=== PATIENT | female | born 2000 | race Caucasian/White ===

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

== ENCOUNTER 2019-07-09 11:58 | Emergency (ER) | payer BC, MEDICAID ==
--- NOTE | 2019-07-09 12:33 | ED ---
Female Urogenital HPI - General Chief complaint: Urogenital Stated complaint: Ovary Pain Time Seen by Provider: 07/09/19 12:11 Source: patient Mode of arrival: ambulatory Limitations: no limitations - History of Present Illness Initial comments: 19-year-old female presented for left lower quadrant pelvic pain. Patient states she has had left lower quadrant pain that began today. She states she also began menstruation. Patient states she is unsure if she is but she has been trying. Patient states the pain could be due to her period but she is unsure she states it appeared more painful. Patient denies concern for STI, denies malodorous or large volume of vaginal discharge. Denies fever. Denies dysuria urgency frequency denies back pain. Patient denies upper abdominal pain remaining review of systems negative Last Menstrual Period: 07/07/19 - Related Data Home Medications Medication Instructions Recorded Confirmed Albuterol Inhaler [Ventolin Hfa 1 - 2 puff INHALATION RT-Q6H PRN 08/05/18 08/05/18 Inhaler] Omeprazole [PriLOSEC] 10 mg PO DAILY 08/05/18 08/05/18 Allergies Allergy/AdvReac Type Severity Reaction Status Date / Time hydrocodone Allergy Unknown Verified 07/09/19 12:06 hydromorphone [From Dilaudid] Allergy Rash/Hives Verified 07/09/19 12:06 NSAIDS (Non-Steroidal Allergy Anaphylaxis Verified 07/09/19 12:06 Anti-Inflamma Penicillins Allergy Rash/Hives Verified 07/09/19 12:06 promethazine Allergy Rash/Hives Verified 07/09/19 12:06 Review of Systems ROS Statement: Those systems with pertinent positive or pertinent negative responses have been documented in the HPI. ROS Other: All systems not noted in ROS Statement are negative. Past Medical History Past Medical History: Asthma, Pneumonia Additional Past Medical History / Comment(s): trach kicked in throat by horse in july 2016, bilat pneumo History of Any Multi-Drug Resistant Organisms: None Reported Past Surgical History: No Surgical Hx Reported Additional Past Surgical History / Comment(s): Emergent tracheostomy 07/2016, 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 vocal cord surgeries, trach, chest tube Past Anesthesia/Blood Transfusion Reactions: No Reported Reaction Past Psychological History: Anxiety, Depression Smoking Status: Current every day smoker Past Alcohol Use History: None Reported Past Drug Use History: None Reported - Past Family History Brother(s) Family Medical History: Cancer General Exam - General Exam Comments Initial Comments: General: The patient is awake and alert, in no distress, and does not appear acutely ill. Eye: Pupils are equal, round and reactive to light, extra-ocular movements are intact. No nystagmus. There is normal conjunctiva bilaterally. No signs of icterus. Ears, nose, mouth and throat: There are moist mucous membranes and no oral lesions. Neck: The neck is supple, there is no tenderness or JVD. Cardiovascular: There is a regular rate and rhythm. No murmur, rub or gallop is appreciated. Respiratory: Lungs are clear to auscultation, respirations are non-labored, breath sounds are equal. No wheezes, stridor, rales, or rhonchi Gastrointestinal: Soft, non-distended, mildly tender abdomento the pelvic region diffusely without masses or organomegaly noted. There is no rebound or guarding present. No CVA tenderness. Bowel sounds are unremarkable. Pelvic: Blood in vault, no ordor no discharge. no motion tenderness. No adnexal tenderness. Musculoskeletal: Normal ROM, no tenderness. Strength 5/5. Sensation intact. Pulses equal bilaterally 2+. Neurological: A&O x 3. CN II-XII intact, There are no obvious motor or sensory deficits. Coordination appears grossly intact. Speech is normal. Skin: Skin is warm and dry and no rashes or lesions are noted. Psychiatric: Cooperative, appropriate mood & affect, normal judgment. Limitations: no limitations Course Vital Signs 07/09/19 07/09/19 07/09/19 12:02 13:21 13:23 Temperature 98.2 F 98.5 F Pulse Rate 75 54 L Respiratory 16 13 Rate Blood Pressure 106/68 104/58 103/65 O2 Sat by Pulse 98 98 Oximetry 07/09/19 14:57 Temperature 98.6 F Pulse Rate 67 Respiratory 13 Rate Blood Pressure 106/76 O2 Sat by Pulse 96 Oximetry Medical Decision Making - Medical Decision Making 19-year-old female presenting for pelvic pain started menstruation today. Patient unsure if she is . Complaining of pain. Ultrasound revealed no ovarian torsion. Findings consistent with follicular changes most likely menstruation. No large ovarian cyst. Patient hCG negative. Patient appears well pelvic unremarkable. Aside from blood in vaginal vault. No heavier out of proportion bleeding. This 70. Patient stable for discharge. I did discuss the case by attending provider was agreeable to care for discharge at this time. - Lab Data Result diagrams: 07/09/19 12:22 07/09/19 12:22 Lab Results 07/09/19 07/09/19 07/09/19 Range/Units 12:22 12:22 12:22 WBC 4.3 (4.0-11.0) k/uL RBC 4.49 (3.80-5.40) m/uL Hgb 13.9 (11.4-16.0) gm/dL Hct 40.8 (34.0-46.0) % MCV 91.0 (80.0-100.0) fL MCH 30.9 (25.0-35.0) pg MCHC 34.0 (31.0-37.0) g/dL RDW 14.5 (11.5-15.5) % Plt Count 243 (150-450) k/uL Neutrophils % 49 % Lymphocytes % 36 % Monocytes % 5 % Eosinophils % 6 % Basophils % 1 % Neutrophils # 2.1 (1.3-7.7) k/uL Lymphocytes # 1.5 (1.0-4.8) k/uL Monocytes # 0.2 (0-1.0) k/uL Eosinophils # 0.3 (0-0.7) k/uL Basophils # 0.1 (0-0.2) k/uL Sodium 142 (137-145) mmol/L Potassium 3.7 (3.5-5.1) mmol/L Chloride 108 H (98-107) mmol/L Carbon Dioxide 26 (22-30) mmol/L Anion Gap 8 mmol/L BUN 14 (7-17) mg/dL Creatinine 0.76 (0.52-1.04) mg/dL Est GFR (CKD-EPI)AfAm >90 (>60 ml/min/1.73 sqM) Est GFR (CKD-EPI)NonAf >90 (>60 ml/min/1.73 sqM) Glucose 86 (74-99) mg/dL Calcium 9.5 (8.4-10.2) mg/dL Total Bilirubin 0.9 (0.2-1.3) mg/dL AST 20 (14-36) U/L ALT 16 (9-52) U/L Alkaline Phosphatase 50 (38-126) U/L Total Protein 7.4 (6.3-8.2) g/dL Albumin 4.5 (3.5-5.0) g/dL Urine HCG, Qual Not Detected (Not Detectd) Disposition Clinical Impression: Vaginal bleeding Disposition: HOME SELF-CARE Condition: Good Instructions (If sedation given, give patient instructions): Dysmenorrhea (ED) Additional Instructions: Please use medication as discussed. Please follow-up with family doctor in the next 2 days and establish care with an OBGYN. Please return to emergency room if the symptoms increase or worsen or for any other concerns. Is patient prescribed a controlled substance at d/c from ED?: No Referrals: Kevin Ceballos MD [Primary Care Provider] - 1-2 days Time of Disposition: 14:45
[2019-07-09 12:49] LABS: ALT 16 U/L (9-52); AST 20 U/L (14-36); African American GFR (CKD) >90 (>60 ml/min/1.73 sqM); Albumin 4.5 g/dL (3.5-5.0); Alkaline Phosphatase 50 U/L (38-126); Anion Gap 8 mmol/L; Blood Urea Nitrogen 14 mg/dL (7-17); Calcium 9.5 mg/dL (8.4-10.2); Carbon Dioxide 26 mmol/L (22-30); Chloride 108 mmol/L (98-107); Glucose 86 mg/dL (74-99); Non-African American GFR(CKD) >90 (>60 ml/min/1.73 sqM); Potassium 3.7 mmol/L (3.5-5.1); Sodium 142 mmol/L (137-145); Total Bilirubin 0.9 mg/dL (0.2-1.3); Total Protein 7.4 g/dL (6.3-8.2)
[2019-07-09 12:51] LABS: Basophils # (A) 0.1 k/uL (0-0.2); Basophils % (A) 1 %; Eosinophils # (A) 0.3 k/uL (0-0.7); Eosinophils % (A) 6 %; HCT 40.8 % (34.0-46.0); HGB 13.9 gm/dL (11.4-16.0); Lymphocytes # (A) 1.5 k/uL (1.0-4.8); Lymphocytes % (A) 36 %; MCH 30.9 pg (25.0-35.0); Mean Platelet Volume 7.5; Monocytes # (A) 0.2 k/uL (0-1.0); Monocytes % (A) 5 %; Neutrophils # (A) 2.1 k/uL (1.3-7.7); Neutrophils % (A) 49 %; Platelet Count 243 k/uL (150-450); RBC 4.49 m/uL (3.80-5.40); RDW 14.5 % (11.5-15.5); WBC 4.3 k/uL (4.0-11.0)
[2019-07-09 13:22] VITALS: RESP 13
--- NOTE | 2019-07-09 14:43 | US ---
EXAMINATION TYPE: US transvaginal DATE OF EXAM: 07/09/2019 COMPARISON: US CLINICAL HISTORY: left sided pain. LLQ pain x 2 hours; Day 5 LMP TECHNIQUE: Transvaginal (TV). Transvaginal sonographic images were medically necessary as patient vo ided 5 minutes prior to US.: Date of LMP: 07/05/2019 EXAM MEASUREMENTS: Uterus: 7.0 x 4.5 x 2.6 cm Endometrial Stripe: 0.3 cm Right Ovary: 3.0 x 2.0 x 2.3 cm Left Ovary: 3.2 x 1.9 x 2.1 cm 1. Uterus: Anteverted 2. Endometrium: thickness is wnl for Day 5 LMP, fluid area in upper endometrium consistent with bein g on menstrual cycle 3. Right Ovary: multiple small follicles 4. Left Ovary: multiple small follicles with largest simple follicular cyst = 0.9 x 0. x 0.6cm. Spectral, color and waveform Doppler imaging shows good arterial and venous flow within the ovaries ; there is no evidence for ovarian torsion. 5. Bilateral Adnexa: wnl 6. Posterior cul-de-sac: wnl IMPRESSION: 1. Multiple normal appearing follicles bilateral ovaries.
[2019-07-09 15:06] VITALS: BP 106/76; PULSE 67; TEMP 98.6
== END 2019-07-09 14:57 | disposition home or self-care (01) ==
LOC: EC 11:58
DX: N93.9 Abnormal uterine and vaginal bleeding, unspecified (principal); R10.2 Pelvic and perineal pain; R10.32 Left lower quadrant pain; J45.909 Unspecified asthma, uncomplicated; F17.200 Nicotine dependence, unspecified, uncomplicated; Z79.51 Long term (current) use of inhaled steroids; Z88.0 Allergy status to penicillin; Z88.5 Allergy status to narcotic agent; Z88.6 Allergy status to analgesic agent
CPT/HCPCS: 36415; 76830; 80053; 81025; 85025; 93975; 99284

== ENCOUNTER 2019-09-16 18:02 | Emergency (ER) | payer BC, MEDICAID ==
[2019-09-16 18:15] VITALS: RESP 16
[2019-09-16] MEDS ORDERED: SODIUM CHLORIDE 0.9% 1,000 ML IV ONE (18:25)
[2019-09-16] MEDS ORDERED: ACETAMINOPHEN TAB 325 MG TAB PO STA (18:44)
--- NOTE | 2019-09-16 18:45 | ED ---
Weakness HPI - General Chief complaint: Weakness Stated complaint: weakness Time Seen by Provider: 09/16/19 18:20 Source: patient Mode of arrival: ambulatory Limitations: no limitations - History of Present Illness Initial comments: 19-year-old female presents emergency department for evaluation of weakness, headache-patient is currently 7 weeks . Patient states she struck some chronic migraines and usually gets a monthly injection. Patient states that 2 days after she found that she was she is supposed to have her monthly injection for prevention of migraines. Patient states that since she has had a chronic migraine. Patient denies any sudden onset of this pain the worse headache of her left. Patient states she did have an aura where she had blurred vision yesterday and the onset of headache she states this is typical of her migraines. Patient denies any current blurred vision vision loss nausea or vomiting. Patient denies any weakness of the upper or lower extremities. Patient states she felt generalized weakness today she states she has history of hypoglycemia on a 2 brownies because she felt like her sugar was low and family was concerned and brought her to emergency department for evaluation. Patient states she did not feel she needed to come. Remaining review of systems negative patient denies any abdominal cramping or vaginal bleeding. Patient appears well upon arrival no signs of acute distress. - Related Data Home Medications Medication Instructions Recorded Confirmed Albuterol Inhaler [Ventolin Hfa 1 - 2 puff INHALATION RT-Q6H PRN 08/05/18 08/05/18 Inhaler] Omeprazole [PriLOSEC] 10 mg PO DAILY 08/05/18 08/05/18 Allergies Allergy/AdvReac Type Severity Reaction Status Date / Time hydrocodone Allergy Unknown Verified 09/16/19 18:15 hydromorphone [From Dilaudid] Allergy Rash/Hives Verified 09/16/19 18:15 NSAIDS (Non-Steroidal Allergy Anaphylaxis Verified 09/16/19 18:15 Anti-Inflamma Penicillins Allergy Rash/Hives Verified 09/16/19 18:15 promethazine Allergy Rash/Hives Verified 09/16/19 18:15 Review of Systems ROS Statement: Those systems with pertinent positive or pertinent negative responses have been documented in the HPI. ROS Other: All systems not noted in ROS Statement are negative. Past Medical History Past Medical History: Asthma, Pneumonia Additional Past Medical History / Comment(s): trach kicked in throat by horse in july 2016, bilat pneumo History of Any Multi-Drug Resistant Organisms: None Reported Past Surgical History: No Surgical Hx Reported Additional Past Surgical History / Comment(s): Emergent tracheostomy 07/2016, 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 vocal cord surgeries, trach, chest tube Past Anesthesia/Blood Transfusion Reactions: No Reported Reaction Past Psychological History: Anxiety, Depression Smoking Status: Current every day smoker Past Alcohol Use History: None Reported Past Drug Use History: None Reported - Past Family History Brother(s) Family Medical History: Cancer General Exam - General Exam Comments Initial Comments: General: The patient is awake and alert, in no distress, and does not appear acutely ill. Eye: +3 mm pupils are equal, round and reactive to light, extra-ocular movements are intact. No nystagmus. There is normal conjunctiva bilaterally. No signs of icterus. Ears, nose, mouth and throat: There are moist mucous membranes and no oral lesions. Neck: The neck is supple, there is no tenderness or JVD. Cardiovascular: There is a regular rate and rhythm. No murmur, rub or gallop is appreciated. Respiratory: Lungs are clear to auscultation, respirations are non-labored, breath sounds are equal. No wheezes, stridor, rales, or rhonchi. Gastrointestinal: Soft, non-distended, non-tender abdomen without masses or organomegaly noted. There is no rebound or guarding present. Musculoskeletal: Normal ROM, no tenderness. Strength 5/5 of the upper and lower extremities equal to person bilaterally. Sensation intact of the upper and lower extremities equal and comparison bilaterally. Radial pulses equal bilaterally 2+. Neurological: A&O x 3. CN II-XII intact, There are no obvious motor or sensory deficits. Coordination appears grossly intact. Speech is normal. No pronator drift Skin: Skin is warm and dry and no rashes or lesions are noted. Psychiatric: Cooperative, appropriate mood & affect, normal judgment. Limitations: no limitations Course Vital Signs 09/16/19 09/16/19 18:13 19:28 Temperature 98.2 F 98.0 F Pulse Rate 61 65 Respiratory 16 16 Rate Blood Pressure 112/63 118/78 O2 Sat by Pulse 97 98 Oximetry Medical Decision Making - Medical Decision Making Appearing 19-year-old female presenting to emergency department for evaluation of generalized weakness. Migraine. History of chronic migraines denies any specific changes. No focal neurologic deficits patient appears well. Patient given Tylenol. Patient given IV hydration she continues to appear well. Glucose within normal limits. Laboratory studies stable. Patient is with a towel pain vaginal bleeding and has had outpatient ultrasound to confirm IUP. At this time I do feel patient is stable for discharge with outpatient primary care follow-up case discussed mentally provider Dr. Schaefer who was agreeable with care plan and discharge. - Lab Data Result diagrams: 09/16/19 18:42 09/16/19 18:42 Lab Results 09/16/19 09/16/19 09/16/19 Range/Units 18:42 18:42 18:47 WBC 9.0 (4.0-11.0) k/uL RBC 4.51 (3.80-5.40) m/uL Hgb 13.7 (11.4-16.0) gm/dL Hct 40.4 (34.0-46.0) % MCV 89.5 (80.0-100.0) fL MCH 30.3 (25.0-35.0) pg MCHC 33.8 (31.0-37.0) g/dL RDW 11.8 (11.5-15.5) % Plt Count 250 (150-450) k/uL Neutrophils % 74 % Lymphocytes % 19 % Monocytes % 4 % Eosinophils % 1 % Basophils % 1 % Neutrophils # 6.7 (1.3-7.7) k/uL Lymphocytes # 1.7 (1.0-4.8) k/uL Monocytes # 0.3 (0-1.0) k/uL Eosinophils # 0.1 (0-0.7) k/uL Basophils # 0.1 (0-0.2) k/uL Sodium 138 (137-145) mmol/L Potassium 3.8 (3.5-5.1) mmol/L Chloride 105 (98-107) mmol/L Carbon Dioxide 22 (22-30) mmol/L Anion Gap 11 mmol/L BUN 11 (7-17) mg/dL Creatinine 0.53 (0.52-1.04) mg/dL Est GFR (CKD-EPI)AfAm >90 (>60 ml/min/1.73 sqM) Est GFR (CKD-EPI)NonAf >90 (>60 ml/min/1.73 sqM) Glucose 99 (74-99) mg/dL POC Glucose (mg/dL) 101 H (75-99) mg/dL POC Glu Friction Welding Machine Operator ID Andrzej Knowles Calcium 9.7 (8.4-10.2) mg/dL Total Bilirubin 0.4 (0.2-1.3) mg/dL AST 26 (14-36) U/L ALT 15 (9-52) U/L Alkaline Phosphatase 41 (38-126) U/L Total Protein 7.7 (6.3-8.2) g/dL Albumin 4.7 (3.5-5.0) g/dL Urine Color Urine Appearance (Clear) Urine pH (5.0-8.0) Ur Specific [place] (1.001-1.035) Urine Protein (Negative) Urine Glucose (UA) (Negative) Urine Ketones (Negative) Urine Blood (Negative) Urine Nitrite (Negative) Urine Bilirubin (Negative) Urine Urobilinogen (<2.0) mg/dL Ur Leukocyte Esterase (Negative) Urine WBC (0-5) /hpf Ur Squamous Epith Cells (0-4) /hpf Urine Mucus (None) /hpf 09/16/19 Range/Units 18:49 WBC (4.0-11.0) k/uL RBC (3.80-5.40) m/uL Hgb (11.4-16.0) gm/dL Hct (34.0-46.0) % MCV (80.0-100.0) fL MCH (25.0-35.0) pg MCHC (31.0-37.0) g/dL RDW (11.5-15.5) % Plt Count (150-450) k/uL Neutrophils % % Lymphocytes % % Monocytes % % Eosinophils % % Basophils % % Neutrophils # (1.3-7.7) k/uL Lymphocytes # (1.0-4.8) k/uL Monocytes # (0-1.0) k/uL Eosinophils # (0-0.7) k/uL Basophils # (0-0.2) k/uL Sodium (137-145) mmol/L Potassium (3.5-5.1) mmol/L Chloride (98-107) mmol/L Carbon Dioxide (22-30) mmol/L Anion Gap mmol/L BUN (7-17) mg/dL Creatinine (0.52-1.04) mg/dL Est GFR (CKD-EPI)AfAm (>60 ml/min/1.73 sqM) Est GFR (CKD-EPI)NonAf (>60 ml/min/1.73 sqM) Glucose (74-99) mg/dL POC Glucose (mg/dL) (75-99) mg/dL POC Glu Friction Welding Machine Operator ID Calcium (8.4-10.2) mg/dL Total Bilirubin (0.2-1.3) mg/dL AST (14-36) U/L ALT (9-52) U/L Alkaline Phosphatase (38-126) U/L Total Protein (6.3-8.2) g/dL Albumin (3.5-5.0) g/dL Urine Color Yellow Urine Appearance Clear (Clear) Urine pH 5.5 (5.0-8.0) Ur Specific [place] 1.025 (1.001-1.035) Urine Protein Trace H (Negative) Urine Glucose (UA) Negative (Negative) Urine Ketones Negative (Negative) Urine Blood Negative (Negative) Urine Nitrite Negative (Negative) Urine Bilirubin Negative (Negative) Urine Urobilinogen <2.0 (<2.0) mg/dL Ur Leukocyte Esterase Small H (Negative) Urine WBC 9 H (0-5) /hpf Ur Squamous Epith Cells 6 H (0-4) /hpf Urine Mucus Many H (None) /hpf Disposition Clinical Impression: Weakness, Hx of migraine headaches, Hx of hypoglycemia Disposition: HOME SELF-CARE Condition: Good Additional Instructions: Please use medication as discussed. Please follow-up with family doctor in the next 2 days and [facility] as scheduled. Please return to emergency room if the symptoms increase or worsen or for any other concerns. Is patient prescribed a controlled substance at d/c from ED?: No Referrals: Kevin Ceballos MD [Primary Care Provider] - 1-2 days Time of Disposition: 20:30
[2019-09-16 18:48] LABS: Glucose,Whole Blood 101 mg/dL (75-99)
[2019-09-16 19:18] LABS: Basophils # (A) 0.1 k/uL (0-0.2); Basophils % (A) 1 %; Eosinophils # (A) 0.1 k/uL (0-0.7); Eosinophils % (A) 1 %; HCT 40.4 % (34.0-46.0); HGB 13.7 gm/dL (11.4-16.0); Lymphocytes # (A) 1.7 k/uL (1.0-4.8); Lymphocytes % (A) 19 %; MCH 30.3 pg (25.0-35.0); MCHC 33.8 g/dL (31.0-37.0); MCV 89.5 fL (80.0-100.0); Mean Platelet Volume 6.7; Monocytes # (A) 0.3 k/uL (0-1.0); Monocytes % (A) 4 %; Neutrophils # (A) 6.7 k/uL (1.3-7.7); Neutrophils % (A) 74 %; Platelet Count 250 k/uL (150-450); RBC 4.51 m/uL (3.80-5.40); RDW 11.8 % (11.5-15.5)
[2019-09-16 19:30] VITALS: BP 118/78; PULSE 65; TEMP 98
[2019-09-16 19:41] LABS: ALT 15 U/L (9-52); AST 26 U/L (14-36); African American GFR (CKD) >90 (>60 ml/min/1.73 sqM); Albumin 4.7 g/dL (3.5-5.0); Alkaline Phosphatase 41 U/L (38-126); Anion Gap 11 mmol/L; Blood Urea Nitrogen 11 mg/dL (7-17); Calcium 9.7 mg/dL (8.4-10.2); Carbon Dioxide 22 mmol/L (22-30); Chloride 105 mmol/L (98-107); Glucose 99 mg/dL (74-99); Non-African American GFR(CKD) >90 (>60 ml/min/1.73 sqM); Potassium 3.8 mmol/L (3.5-5.1); Sodium 138 mmol/L (137-145); Total Bilirubin 0.4 mg/dL (0.2-1.3); Total Protein 7.7 g/dL (6.3-8.2)
[2019-09-16 19:51] LABS: Appearance,Urine Clear (Clear); Bilirubin,Urine Negative (Negative); Blood,Urine Negative (Negative); Color,Urine Yellow; Glucose,Urine (UA) Negative (Negative); Ketones,Urine Negative (Negative); Leukocyte Esterase,Urine Small (Negative); Mucus,Urine Many /hpf; Nitrite,Urine Negative (Negative); PH, Urine 5.5 (5.0-8.0); Protein,Urine Trace (Negative); Specific Gravity,Urine 1.025 (1.001-1.035); Squamous Epithelial Cell,Urine 6 /hpf (0-4); Urobilinogen,Urine <2.0 mg/dL (<2.0); WBC,Urine 9 /hpf (0-5)
== END 2019-09-16 21:05 | disposition home or self-care (01) ==
LOC: EC 18:02
DX: O99.89 Other specified diseases and conditions complicating pregnancy, childbirth and the puerperium (principal); O99.351 Diseases of the nervous system complicating pregnancy, first trimester; R53.1 Weakness; N93.9 Abnormal uterine and vaginal bleeding, unspecified; O99.331 Smoking (tobacco) complicating pregnancy, first trimester; J45.909 Unspecified asthma, uncomplicated; F17.200 Nicotine dependence, unspecified, uncomplicated; Z88.5 Allergy status to narcotic agent; Z88.6 Allergy status to analgesic agent; Z88.0 Allergy status to penicillin; Z88.8 Allergy status to other drugs, medicaments and biological substances; Z79.51 Long term (current) use of inhaled steroids; Z3A.01 Less than 8 weeks gestation of pregnancy
CPT/HCPCS: 36415; 80053; 81001; 85025; 96360; 96361; 99285

== ENCOUNTER 2019-10-12 19:07 | Emergency (ER) | payer BC, MEDICAID, OTHER ==
[2019-10-12 19:19] VITALS: BP 117/70; PULSE 96; RESP 20; TEMP 99.1
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
--- NOTE | 2019-10-12 20:24 | XR ---
EXAMINATION TYPE: XR chest 2V DATE OF EXAM: 10/12/2019 COMPARISON: 08/13/2018 HISTORY: 2 views TECHNIQUE: Frontal and lateral views of the chest are obtained. FINDINGS: Heart and mediastinum are normal. Lungs are clear. Costophrenic angles are clear. Bony tho rax is intact. IMPRESSION: No active cardiopulmonary disease. Normal heart. No change.
--- NOTE | 2019-10-12 20:26 | XR ---
EXAMINATION TYPE: XR foot complete LT DATE OF EXAM: 10/12/2019 COMPARISON: NONE HISTORY: Left foot pain TECHNIQUE: 3 views FINDINGS: I see no fracture nor dislocation. Joint spaces are normal. There are no pathologic calcifi cations. Metatarsals are intact. IMPRESSION: Negative left foot exam.
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
== END 2019-10-12 22:15 | disposition home or self-care (01) ==
LOC: EC 19:07
DX: O99.89 Other specified diseases and conditions complicating pregnancy, childbirth and the puerperium (principal); R10.30 Lower abdominal pain, unspecified; O99.511 Diseases of the respiratory system complicating pregnancy, first trimester; J45.909 Unspecified asthma, uncomplicated; O99.331 Smoking (tobacco) complicating pregnancy, first trimester; F17.200 Nicotine dependence, unspecified, uncomplicated; Z98.890 Other specified postprocedural states; Z79.899 Other long term (current) drug therapy; Z88.5 Allergy status to narcotic agent; Z88.6 Allergy status to analgesic agent; Z88.0 Allergy status to penicillin; Z88.8 Allergy status to other drugs, medicaments and biological substances; Z3A.12 12 weeks gestation of pregnancy; V89.2XXA Person injured in unspecified motor-vehicle accident, traffic, initial encounter; Y92.89 Other specified places as the place of occurrence of the external cause
CPT/HCPCS: 71046; 76801; 76813; 99284

== ENCOUNTER 2019-12-02 18:17 | Emergency (ER) | payer BC, MEDICAID ==
[2019-12-02 19:32] VITALS: BP 111/53; PULSE 100; RESP 18; TEMP 98.8
--- NOTE | 2019-12-02 19:42 | ED ---
URI HPI - General Chief Complaint: Upper Respiratory Infection Stated Complaint: Cough, congestion Time Seen by Provider: 12/02/19 19:39 Source: patient Mode of arrival: ambulatory Limitations: no limitations - History of Present Illness Initial Comments: 19 week female presenting for cough, congestion x 2 days. Denies vomiting, diarrhea, abdominal pain, vaginal bleeding, fevers, difficulty breathing or swallowing. Hx of pneumonia when she had a tracheostomy. Patient denies recent pna or antibiotics. Denies urinary symptoms, neck stiffness, headache. Remaining ROS (-). - Related Data Home Medications Medication Instructions Recorded Confirmed 114/Iron A-G/Folate 1 1 each PO 12/02/19 [Prenate Elite Tablet] Allergies Allergy/AdvReac Type Severity Reaction Status Date / Time hydrocodone Allergy Unknown Verified 12/02/19 19:32 hydromorphone [From Dilaudid] Allergy Rash/Hives Verified 12/02/19 19:32 NSAIDS (Non-Steroidal Allergy Anaphylaxis Verified 12/02/19 19:32 Anti-Inflamma Penicillins Allergy Rash/Hives Verified 12/02/19 19:32 promethazine Allergy Rash/Hives Verified 12/02/19 19:32 Review of Systems ROS Statement: Those systems with pertinent positive or pertinent negative responses have been documented in the HPI. ROS Other: All systems not noted in ROS Statement are negative. Past Medical History Past Medical History: Asthma, Pneumonia Additional Past Medical History / Comment(s): trach kicked in throat by horse in july 2016, bilat pneumo History of Any Multi-Drug Resistant Organisms: None Reported Past Surgical History: No Surgical Hx Reported Additional Past Surgical History / Comment(s): Emergent tracheostomy 07/2016, 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 vocal cord surgeries, trach, chest tube Past Anesthesia/Blood Transfusion Reactions: No Reported Reaction Past Psychological History: Anxiety, Depression Smoking Status: Former smoker Past Alcohol Use History: None Reported Past Drug Use History: None Reported - Past Family History Brother(s) Family Medical History: Cancer General Exam - General Exam Comments Initial Comments: General: The patient is awake and alert, in no distress, and does not appear acutely ill. Eye: +3 mm pupils are equal, round and reactive to light, extra-ocular movements are intact. No nystagmus. There is normal conjunctiva bilaterally. No signs of icterus. No photophobia Ears, nose, mouth and throat: There are moist mucous membranes and no oral lesions. Oropharynx was not erythematous there is no tonsillar enlargement exudates or lesions. Uvula midline. Tympanic membranes are not erythematous or is no effusions bulging or retraction. No tenderness to palpation of the mastoid. No anterior cervical lymphadenopathy. Rhinorrhea, clear and bilateral nares. No tripoding, no drooling. Neck: The neck is supple, there is no tenderness or JVD. No nuchal rigidity Cardiovascular: There is a regular rate and rhythm. No murmur, rub or gallop is appreciated. Respiratory: Lungs are clear to auscultation, respirations are non-labored, breath sounds are equal. No wheezes, stridor, rales, or rhonchi. No retractions or abdominal breathing. Gastrointestinal: Soft, consitent wtih non-tender abdomen without masses or organomegaly noted. There is no rebound or guarding present. Bowel sounds are unremarkable. Musculoskeletal: Normal ROM, no tenderness. Strength 5/5. Sensation intact. Radial pulses equal bilaterally 2+. Neurological: A&O x 3. CN II-XII intact grossly, There are no obvious motor or sensory deficits. Coordination appears grossly intact. Speech appears normal, no muffling. Skin: Skin is warm and dry and no rashes or lesions are noted. No extremity edema Psychiatric: Cooperative Limitations: no limitations Course Vital Signs 12/02/19 19:28 Temperature 98.8 F Pulse Rate 100 Respiratory 18 Rate Blood Pressure 111/53 O2 Sat by Pulse 100 Oximetry Medical Decision Making - Medical Decision Making CXR clear ( patient requested xr despite risk, shielded), lungs clear. influenza (-) nontoxic in appearance, afebrile. FHT WNL, obtained from mother baby. Discussed case with Dr. Bravo who is agreeable to discharge with symptomatic treatment, recommending discussing all OTC meds with OBGYN before taking them. Instructed patient to take tylenol for throat pain. - Lab Data Lab Results 12/02/19 Range/Units 19:51 Influenza Type A RNA Not Detected (Not Detectd) Influenza Type B (PCR) Not Detected (Not Detectd) Disposition Clinical Impression: Upper respiratory infection Disposition: HOME SELF-CARE Condition: Good Instructions (If sedation given, give patient instructions): Upper Respiratory Infection (ED) Additional Instructions: Please use medication as discussed. Please follow-up with family doctor in the next 2 days. Please return to emergency room if the symptoms increase or worsen or for any other concerns. Is patient prescribed a controlled substance at d/c from ED?: No Referrals: Kevin Ceballos MD [Primary Care Provider] - 1-2 days Time of Disposition: 20:43
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
== END 2019-12-02 20:56 | disposition home or self-care (01) ==
LOC: EC 18:17
DX: J06.9 Acute upper respiratory infection, unspecified (principal); Z87.891 Personal history of nicotine dependence; Z87.09 Personal history of other diseases of the respiratory system; Z87.01 Personal history of pneumonia (recurrent); Z93.0 Tracheostomy status; Z88.5 Allergy status to narcotic agent; Z88.6 Allergy status to analgesic agent; Z88.0 Allergy status to penicillin; Z88.8 Allergy status to other drugs, medicaments and biological substances
CPT/HCPCS: 71046; 87502; 99283

== ENCOUNTER 2020-01-19 22:37 | Outpatient (CLI) | payer BC, MEDICAID ==
[2020-01-19 23:30] VITALS: BP 112/64; PULSE 90; RESP 16; TEMP 98.4
== END 2020-01-19 23:25 | disposition home or self-care (01) ==
LOC: FBPOP 22:37
PROVIDERS: ATTEND Obstetrics & Gynecology
DX: O36.8120 Decreased fetal movements, second trimester, not applicable or unspecified (principal); Z3A.26 26 weeks gestation of pregnancy
CPT/HCPCS: 99213

== ENCOUNTER 2020-04-06 16:45 | Outpatient (CLI) | payer MEDICAID ==
[2020-04-06 17:21] VITALS: BP 120/71; PULSE 102; RESP 18; TEMP 97.5
--- NOTE | 2020-04-07 07:52 | P.MSEPDOC ---
Presenting Problems - Arrival Data Date of Arrival on Unit: 04/06/20 Time of Arrival on Unit: 16:48 Mode of Transport: Ambulatory - Complaint OB-Reason for Admission/Chief Complaint: Rule Out SROM, Decreased Movement Comment: Amnisure neg. audible movement and reactive NST Medical History - Information : 1 Para: 0 Term: 0 : 0 Abortions: Spontaneous or Elective: 0 Number of Living Children: 0 - Gestational Age Gestational Age by IRENE (wks/days): 37 Weeks and 1 Days Review of Systems - Review of Systems Constitutional: No problems Breast: No problems ENT: No problems Cardiovascular: No problems Respiratory: No problems Gastrointestinal: No problems Genitourinary: No problems Musculoskeletal: No problems Neurological: No problems Skin: No problems Vital Signs - Temperature Temperature: 97.5 F Temperature Source: Temporal Artery Scan - Pulse Right Sitting Brachial Pulse Rate: 102 Pulse Assessment Method: Automatic Cuff - Respirations Respiratory Rate: 18 Oxygen Delivery Method: Room Air O2 Sat by Pulse Oximetry: 97 - Blood Pressure Right Arm Sitting Blood Pressure: 120/71 Blood Pressure Mean: 87 Blood Pressure Source: Automatic Cuff Medical Screen Scoring (Pre) - Cervical Exam Dilation: 1-3 cm = 1 Effacement: More than 50% = 2 Membranes: Intact - Uterine Contractions Frequency: > or = 36 weeks =2 Duration: > 40 seconds = 2 Intensity: N/A - Maternal Vital Signs Maternal Temperature: N/A Maternal Blood Pressure: N/A Signs of Preeclampsia: N/A Maternal Respirations: N/A - Maternal Trauma Maternal Trauma: N/A - Assessment - Baby A Baseline FHR: 130 Heart Rate - NICHD Category: Category I (Normal) = 0 NST: Reactive Position: N/A Station: N/A - Total Score - Baby A Total Score - Baby A: 7 - Total Score - Baby B Total Score - Baby B: 7 - Total Score - Baby C Total Score - Baby C: 7 - Level of Risk - Baby A Level of Risk - Baby A: Medium (6-9) - Level of Risk - Baby B Level of Risk - Baby B: Medium (6-9) - Level of Risk - Baby C Level of Risk - Baby C: Medium (6-9) Physician Notification (Pre) - Physician Notified Physician Notified Date: 04/06/20 Physician Notified Time: 17:20 New Order Received: Yes - Notification Comment Comment: Pt to follow up with dr Stearns Wednesday in the office Disposition - Disposition OB Disposition: Discharge to home Discharge Date: 04/06/20 Discharge Time: 17:21 I agree with the RN Medical Screening Exam: Yes Risk & Benefit of care provided described in d/c instruction: Yes Diagnosis: Decreased movement
== END 2020-04-06 17:26 | disposition home or self-care (01) ==
LOC: FBPOP 16:45
PROVIDERS: ATTEND Obstetrics & Gynecology
DX: O36.8130 Decreased fetal movements, third trimester, not applicable or unspecified (principal); Z3A.37 37 weeks gestation of pregnancy
CPT/HCPCS: 59025; 99213

== ENCOUNTER → 2020-04-17 | Outpatient (CLI) | payer MEDICAID, BC | END | disposition home or self-care (01) | LOC: LABWHC1 09:14 | PROVIDERS: ATTEND Obstetrics & Gynecology Obstetrics | DX: Z11.59 Encounter for screening for other viral diseases (principal) | CPT/HCPCS: 87635 ==

== ENCOUNTER 2020-04-19 06:00 | Inpatient (IN) | payer BC, MEDICAID ==
[2020-04-19] MEDS ORDERED: TERBUTALINE 1 MG/ML VIAL SQ PRN (06:22)
[2020-04-19] MEDS ORDERED: LIDOCAINE 0.5% (PF) 5 MG/ML (50 ML SDV) SQ PRN (06:22)
[2020-04-19] MEDS ORDERED: CARBOPROST TROMETHAMINE 250 MCG/ML 1 ML AMP IM PRN (06:22)
[2020-04-19] MEDS ORDERED: OXYTOCIN 10 UNIT/ML 1 ML VIAL IM PRN (06:22)
[2020-04-19] MEDS ORDERED: METHYLERGONOVINE 0.2 MG/ML 1 ML AMP IM PRN (06:22)
[2020-04-19] MEDS ORDERED: OXYTOCIN 30 UNITS/500 ML NS 30 UNIT in SALINE 1 500ML.BAG IV SCH (06:30)
[2020-04-19] MEDS: LACTATED RINGERS 1,000 ML IV SCH ×2 (07:00→10:54)
[2020-04-19 07:18] LABS: Anisocytosis Slight; Basophils # (A) 0.1 k/uL (0-0.2); Basophils % (A) 1 %; Eosinophils # (A) 0.2 k/uL (0-0.7); Eosinophils % (A) 2 %; HCT 37.1 % (34.0-46.0); HGB 12.5 gm/dL (11.4-16.0); Lymphocytes # (A) 1.8 k/uL (1.0-4.8); Lymphocytes % (A) 20 %; MCH 29.6 pg (25.0-35.0); MCHC 33.6 g/dL (31.0-37.0); MCV 87.9 fL (80.0-100.0); Mean Platelet Volume 8.9; Monocytes # (A) 0.4 k/uL (0-1.0); Monocytes % (A) 4 %; Neutrophils # (A) 6.6 k/uL (1.3-7.7); Neutrophils % (A) 72 %; Platelet Count 218 k/uL (150-450); RBC 4.22 m/uL (3.80-5.40); RDW 18.6 % (11.5-15.5); WBC 9.2 k/uL (4.0-11.0)
[2020-04-19] MEDS ORDERED: fentaNYL (PF) 50 MCG/ML 5 ML AMP ONE (11:09)
[2020-04-19] MEDS ORDERED: ROPIVACAINE 5MG/ML 20ML VIAL ONE (11:09)
[2020-04-19] MEDS ORDERED: SODIUM CHLORIDE 0.9% 100 ML BAG ONE (11:09)
[2020-04-19] MEDS ORDERED: BUTORPHANOL 1 MG/ML 1 ML VIAL IV PRN (13:20)
[2020-04-19] MEDS ORDERED: SIMETHICONE 80 MG CHEWABLE PO PRN (13:44)
[2020-04-19] MEDS ORDERED: diphenhydrAMINE 50 MG/ML 1 ML VIAL IVP PRN ×2 (13:44)
[2020-04-19] MEDS ORDERED: BENZOCAINE/MENTHOL SPRAY 1 GM/SPRAY AEROSOL TOPICAL PRN (13:44)
[2020-04-19] MEDS ORDERED: diphenhydrAMINE 25 MG CAP PO PRN (13:44)
[2020-04-19] MEDS ORDERED: HYDROCORTISONE 2.5% RECTAL CREAM 30 GM TUBE RECTAL PRN (13:44)
[2020-04-19] MEDS ORDERED: diphenhydrAMINE 50 MG CAP PO PRN (13:44)
[2020-04-19] MEDS ORDERED: HYDROcodone/APAP 5-325MG 1 EACH TAB PO PRN (13:44)
[2020-04-19] MEDS ORDERED: WITCH HAZEL 1 EACH MED..PAD TOPICAL PRN (13:44)
[2020-04-19] MEDS ORDERED: ZOLPIDEM 5 MG TAB PO PRN (13:44)
[2020-04-19] MEDS ORDERED: LANOLIN CREAM 5 GM TUBE TOPICAL PRN (13:44)
[2020-04-19] MEDS ORDERED: OXYTOCIN 20 UNITS/1000 ML NS 1,000 ML IV SCH (13:45)
[2020-04-19] MEDS ORDERED: ALBUTEROL NEBULIZED 2.5 MG/3 ML INHALATION PRN (13:46)
--- NOTE | 2020-04-19 13:49 | P.PROBDLV ---
Vaginal Delivery Note - . Vaginal Delivery Note: This is a pleasant 19-year-old 1 para 0 at 39 0/7 weeks that presented to labor and delivery for elective induction of labor. Patient was admitted and Pitocin induction labor was begun per hospital protocol. Patient underwent amniotomy and clear fluid was obtained. Patient progressed through labor eventually becoming uncomfortable and requesting epidural placement. Epidural was placed without difficulty by the anesthesia department. Patient progressed quickly to complete began pushing and had a normal spontaneous vaginal delivery of a viable female at 1313, didn't have a loose nuchal cord which was reduced on the perineum. After a two-minute delayed the umbilical cord was doubly clamped and cut and the infant was handed off to the maternal abdomen. Spontaneous cry at was noted. Infant's weight was noted to be 8 lbs. 3 oz. Placenta was delivered spontaneously intact with a three-vessel cord being noted. The bladder was then drained for approximately 200 mL of clear yellow urine. On inspection the patient's vaginal vault a first-degree vaginal laceration was noted this was repaired with a [id number] suture of 0 Vicryl. Hemostasis was appreciated on further inspection. At this time the uterus noted be firm and below the umbilicus. Bleeding was noted to be minimal. At this time all counts are correct 2 Patient and tolerated delivery well and are resting comfortably.
--- NOTE | 2020-04-19 13:54 | P.HPOB ---
History of Present Illness H&P Date: 04/19/20 Chief Complaint: IUP at 39 and 0/sevenths weeks This is a 19-year-old 1 para 0 at 39 0/7 weeks estimated due date of . Patient presented to labor and delivery for elective induction of labor. Patient has been receiving routine care with myself which has been essentially compensated with the exception of gestational anemia and a history of asthma. Patient also has a history of a tracheotomy/vochal cord surgery years ago. Patient notes good movement, denies vaginal bleeding or loss of fluid she notes irregular contractions this morning. On blood work she has a blood type of A+, rubella status immune, hepatitis B surface antigen negative, HIV negative, RPR nonreactive, group beta strep was negative. Review of Systems Constitutional: Denies chills, Denies fatigue, Denies fever Ears, nose, mouth and throat: Denies headache Respiratory: Denies dyspnea Gastrointestinal: Reports constipation, Denies diarrhea, Denies nausea, Denies vomiting Genitourinary: Reports Past Medical History Past Medical History: Asthma, Pneumonia Additional Past Medical History / Comment(s): trach kicked in throat by horse in july 2016, bilat pneumo History of Any Multi-Drug Resistant Organisms: None Reported Past Surgical History: No Surgical Hx Reported Additional Past Surgical History / Comment(s): Emergent tracheostomy 07/2016, 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 vocal cord surgeries, trach, chest tube Past Anesthesia/Blood Transfusion Reactions: No Reported Reaction Past Psychological History: Anxiety, Depression Smoking Status: Former smoker Past Alcohol Use History: None Reported Past Drug Use History: None Reported - Past Family History Brother(s) Family Medical History: Cancer Medications and Allergies Home Medications Medication Instructions Recorded Confirmed Type 114/Iron A-G/Folate 1 1 each PO DAILY 12/02/19 04/19/20 History [Prenate Elite Tablet] Albuterol Inhaler (Mhu) [Ventolin 1 - 2 puff INHALATION RT-Q6H PRN 12/13/19 04/19/20 History Hfa Inhaler] Ferrous Sulfate [Iron] 325 mg PO DAILY 04/06/20 04/19/20 History Omeprazole [PriLOSEC] 20 mg PO AC-BRKFST 04/06/20 04/19/20 History Allergies Allergy/AdvReac Type Severity Reaction Status Date / Time cephalexin [From flex] Allergy Itching Verified 01/19/20 22:47 hydrocodone Allergy Unknown Verified 01/19/20 22:47 hydromorphone [From Dilaudid] Allergy Rash/Hives Verified 01/19/20 22:47 NSAIDS (Non-Steroidal Allergy Anaphylaxis Verified 01/19/20 22:47 Anti-Inflamma Penicillins Allergy Rash/Hives Verified 01/19/20 22:47 promethazine Allergy Rash/Hives Verified 01/19/20 22:47 Exam Osteopathic Statement: *. No significant issues noted on an osteopathic structural exam other than those noted in the History and Physical/Consult. Vital Signs Temp Pulse Resp BP 04/19/20 06:19 97.1 F L 94 16 119/63 Intake and Output 04/18/20 04/19/20 04/19/20 22:59 06:59 14:59 Other: Weight 55.792 kg Targeted physical exam was performed and state in general this a well-nourished well-developed female with obvious hoarse voice secondary to her h istory of tracheotomy, breathing is noted to nonlabored, heart has regular rate and rhythm, abdomen is gravid and appropriate for gestational age, on exam she is 2/100/-1 station amniotomy is performed and clear fluid was obtained. heart tones are be category 1 and she is michelle irregularly at this time. Results Result Diagrams: 04/19/20 07:07 Abnormal Lab Results - Last 24 Hours (Table) 04/19/20 Range/Units 07:07 RDW 18.6 H (11.5-15.5) % Assessment and Plan (1) Term Current Visit: Yes Status: Acute Code(s): Z34.90 - ENCNTR FOR SUPRVSN OF NORMAL , UNSP, UNSP TRIMESTER SNOMED Code(s): 86590556 Plan: Patient is admitted to labor and delivery for Pitocin induction of labor. Pitocin induction of labor is begun per hospital protocol. Options for analgesia are discussed with patient in including Stadol/epidural.. Patient desires epidural placement when appropriate.
[2020-04-19] MEDS: ACETAMINOPHEN TAB 325 MG TAB PO PRN ×2 (16:18→20:38)
[2020-04-19] MEDS: SENNOSIDES-DOCUSATE SODIUM 1 EACH TAB PO SCH (20:38)
[2020-04-20] MEDS: ACETAMINOPHEN TAB 325 MG TAB PO PRN ×3 (02:21→10:19)
[2020-04-20 05:21] VITALS: RESP 16
[2020-04-20 05:56] LABS: Anisocytosis Slight; Basophils # (A) 0.1 k/uL (0-0.2); Basophils % (A) 1 %; Eosinophils # (A) 0.1 k/uL (0-0.7); Eosinophils % (A) 1 %; HCT 33.3 % (34.0-46.0); HGB 10.7 gm/dL (11.4-16.0); Lymphocytes % (A) 18 %; MCH 28.5 pg (25.0-35.0); MCHC 32.2 g/dL (31.0-37.0); MCV 88.4 fL (80.0-100.0); Mean Platelet Volume 8.4; Monocytes # (A) 0.6 k/uL (0-1.0); Monocytes % (A) 6 %; Neutrophils # (A) 7.9 k/uL (1.3-7.7); Neutrophils % (A) 73 %; Platelet Count 194 k/uL (150-450); RBC 3.77 m/uL (3.80-5.40); RDW 18.8 % (11.5-15.5); WBC 10.8 k/uL (4.0-11.0)
[2020-04-20 08:23] VITALS: BP 115/65; PULSE 60; TEMP 98
[2020-04-20] MEDS: SENNOSIDES-DOCUSATE SODIUM 1 EACH TAB PO SCH (08:25)
[2020-04-20] MEDS ORDERED: PRENATAL VIT-IRON-FOLIC ACID 1 EACH CAP PO SCH (09:00)
[2020-04-20] MEDS ORDERED: FERROUS SULFATE 325 MG TAB PO SCH (09:00)
--- NOTE | 2020-04-20 09:32 | P.DS ---
Providers Date of admission: 04/19/20 06:06 Expected date of discharge: 04/20/20 Attending physician: Fallon Stearns Primary care physician: Stated None Hospital Course: This is a 19-year-old white female 1 para 0 EDC 04/26/2020 at 39 weeks gestation. She presented for induction with favorable cervix. remarkable for blood type A+, group B strep cultures negative, rubella status immune. Please see dictated history and physical for details. Patient was induced, and went on to deliver vaginally a liveborn female with scores of 9 and 9 at one and 5 minutes respectively. There was a small first-degree perineal laceration easily repaired. Infant weighed 3710 g or 8 lbs. 3 oz. Delivery was unremarkable, epidural utilized. Please see dictated delivery note for details. This morning the patient is doing well. She is voiding, ambulating and passing flatus without difficulty. Vital signs are stable and she is afebrile. Fundus is firm and in the midline, symmetric and 18 week size. Extremities are negative for edema. Chest is clear in all calero. Patient is judged to be in very good condition for discharge home. She will follow-up in the office with her attending physician in 4 weeks. She is reminded no intercourse, tampons or douching. She will use [id number] extra strength Tylenol, 1000 mg every 4-6 hours as needed for pain. She will call with any fevers shakes or chills, foul smelling or copious lochia, with the passage of large blood clots, or indeed with any pain not alleviated by Tylenol. I have provided her with a prescription for a double electric breast pump per her request. Patient Condition at Discharge: Good Plan - Discharge Summary Discharge Rx Participant: No New Discharge Prescriptions: No Action 114/Iron A-G/Folate 1 [Prenate Elite Tablet] 1 each PO DAILY Albuterol Inhaler (Mhu) [Ventolin Hfa Inhaler] 1 - 2 puff INHALATION RT-Q6H PRN PRN Reason: Dyspnea Omeprazole [PriLOSEC] 20 mg PO AC-BRKFST Ferrous Sulfate [Iron] 325 mg PO DAILY Discharge Medication List 114/Iron A-G/Folate 1 [Prenate Elite Tablet] 1 each PO DAILY 12/02/19 [History] Albuterol Inhaler (Mhu) [Ventolin Hfa Inhaler] 1 - 2 puff INHALATION RT-Q6H PRN 12/13/19 [History] Ferrous Sulfate [Iron] 325 mg PO DAILY 04/06/20 [History] Omeprazole [PriLOSEC] 20 mg PO AC-BRKFST 04/06/20 [History] Follow up Appointment(s)/Referral(s): Fallon Stearns DO [Doctor of Osteopathic Medicine] - 4 Weeks Discharge Disposition: HOME SELF-CARE
== END 2020-04-20 13:45 | disposition home or self-care (01) | DRG 807 ==
LOC: 4FBP 06:06
PROVIDERS: ADMIT Obstetrics & Gynecology Obstetrics; ATTEND Obstetrics & Gynecology Obstetrics
PROC: 10E0XZZ Delivery of Products of Conception, External Approach (ICD-10-PCS; principal; 2020-04-19)
PROC: 10907ZC Drainage of Amniotic Fluid, Therapeutic from Products of Conception, Via Natural or Artificial Opening (ICD-10-PCS; principal; 2020-04-19)
PROC: 0HQ9XZZ Repair Perineum Skin, External Approach (ICD-10-PCS; principal; 2020-04-19)
PROC: 3E033VJ Introduction of Other Hormone into Peripheral Vein, Percutaneous Approach (ICD-10-PCS; principal; 2020-04-19)
PROC: 3E0R3BZ Introduction of Anesthetic Agent into Spinal Canal, Percutaneous Approach (ICD-10-PCS; principal; 2020-04-19)
PROC: 00HU33Z Insertion of Infusion Device into Spinal Canal, Percutaneous Approach (ICD-10-PCS; principal; 2020-04-19)
DX: O99.02 Anemia complicating childbirth (principal); Z37.0 Single live birth; D64.9 Anemia, unspecified; O99.52 Diseases of the respiratory system complicating childbirth; J45.909 Unspecified asthma, uncomplicated; O70.0 First degree perineal laceration during delivery; O69.81X0 Labor and delivery complicated by cord around neck, without compression, not applicable or unspecified; Z3A.39 39 weeks gestation of pregnancy; Z87.891 Personal history of nicotine dependence; Z86.59 Personal history of other mental and behavioral disorders; Z88.6 Allergy status to analgesic agent; Z88.1 Allergy status to other antibiotic agents; Z88.5 Allergy status to narcotic agent; Z88.0 Allergy status to penicillin; Z88.8 Allergy status to other drugs, medicaments and biological substances; Z87.01 Personal history of pneumonia (recurrent); Z79.899 Other long term (current) drug therapy; Z80.9 Family history of malignant neoplasm, unspecified
CPT/HCPCS: 85025; 86850; 86900; 86901

== ENCOUNTER 2020-07-13 22:29 | Emergency (ER) | payer BC, MEDICAID ==
[2020-07-13 22:38] VITALS: BP 104/62; RESP 20
[2020-07-13] MEDS ORDERED: ACETAMINOPHEN TAB 500 MG TAB PO STA (23:05)
--- NOTE | 2020-07-14 00:06 | ED ---
General Adult HPI - General Chief complaint: ENT Stated complaint: Sore Throat Time Seen by Provider: 07/13/20 22:42 Source: patient, family Mode of arrival: ambulatory Limitations: no limitations - History of Present Illness Initial comments: 20-year-old female patient presents to the emergency department today for evaluation of fever, sore throat, and cough. Patient states she started to feel unwell last evening. Patient denies taking any medication for her symptoms today. Denies any ear pain, shortness of breath, or sputum production. Denies any nausea or vomiting. Denies rash. Denies chance of . Patient denies any recent rash, chest pain, abdominal pain, diarrhea, constipation, back pain, numbness, tingling, dizziness, weakness, hematuria, dysuria, urinary urgency, urinary frequency, headache, visual changes, or any other complaints. - Related Data Home Medications Medication Instructions Recorded Confirmed 114/Iron A-G/Folate 1 1 each PO DAILY 12/02/19 04/19/20 [Prenate Elite Tablet] Albuterol Inhaler (Mhu) [Ventolin 1 - 2 puff INHALATION RT-Q6H PRN 12/13/19 04/19/20 Hfa Inhaler] Ferrous Sulfate [Iron] 325 mg PO DAILY 04/06/20 04/19/20 Omeprazole [PriLOSEC] 20 mg PO AC-BRKFST 04/06/20 04/19/20 Allergies Allergy/AdvReac Type Severity Reaction Status Date / Time cephalexin [From Keflex] Allergy Itching Verified 07/13/20 22:38 hydrocodone Allergy Unknown Verified 07/13/20 22:38 hydromorphone [From Dilaudid] Allergy Rash/Hives Verified 07/13/20 22:38 NSAIDS (Non-Steroidal Allergy Anaphylaxis Verified 07/13/20 22:38 Anti-Inflamma Penicillins Allergy Rash/Hives Verified 07/13/20 22:38 promethazine Allergy Rash/Hives Verified 07/13/20 22:38 Review of Systems ROS Statement: Those systems with pertinent positive or pertinent negative responses have been documented in the HPI. ROS Other: All systems not noted in ROS Statement are negative. 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 Vital signs upon presentation are temperature 102.1F oral, pulse 101, respirations 20, blood pressure 104/62, pulse ox 99% on room air.) Eye exam: Present: normal appearance, PERRL, EOMI. Absent: scleral icterus, conjunctival injection, periorbital swelling ENT exam: Present: mucous membranes moist, TM's normal bilaterally. Absent: normal oropharynx (Pharyngeal erythema, no tonsillar hypertrophy or exudate, tonsils are symmetric, uvula midline.) Neck exam: Present: normal inspection. Absent: tenderness, meningismus, lymphadenopathy Respiratory exam: Present: normal lung sounds bilaterally. Absent: respiratory distress, wheezes, rales, rhonchi, stridor Cardiovascular Exam: Present: regular rate, normal rhythm, normal heart sounds. Absent: systolic murmur, diastolic murmur, rubs, gallop, clicks GI/Abdominal exam: Present: soft, normal bowel sounds. Absent: distended, tenderness, guarding, rebound, rigid Neurological exam: Present: alert, oriented X3, CN II-XII intact Psychiatric exam: Present: normal affect, normal mood Skin exam: Present: warm, dry, intact, normal color. Absent: rash Course Vital Signs 07/13/20 07/13/20 22:34 23:04 Temperature 100.2 F H 102.1 F H Pulse Rate 101 H Respiratory 20 Rate Blood Pressure 104/62 O2 Sat by Pulse 99 Oximetry Medical Decision Making - Medical Decision Making 20-year-old female patient presents to the emergency department today for evaluation of fever, sore throat, and cough. Patient is been sick since last night. Physical examination reveals clear equal lung sounds. There is pharyngeal erythema with no tonsillar hypertrophy, asymmetry, and uvula is midline. Chest x-ray shows no acute cardiopulmonary process. Strep screen is negative. COVID-19 test is pending. Patient will be discharged home with instructions to increase fluids, take Tylenol for fever control, and use duhi-[id number]-bzccyqi cold remedies for symptom relief. She is instructed to quarantine until she has her COVID-19 results. She is instructed to follow-up with her primary care physician for recheck in 1-2 days. Return parameters discussed in detail. She verbalizes understanding and agrees with this plan. - Lab Data Lab Results 07/13/20 Range/Units 23:34 Group A Strep Rapid Negative (Negative) - Radiology Data Radiology results: report reviewed, image reviewed Two-view x-ray of the chest obtained. Report was reviewed in its entirety. Impression by Dr. Jones shows normal chest. No change. Disposition Clinical Impression: Viral upper respiratory infection Disposition: HOME SELF-CARE Condition: Good Instructions (If sedation given, give patient instructions): Upper Respiratory Infection (ED) Additional Instructions: Take Tylenol for fever and pain control. Consider nfxt-inn-hyfzytr cold medications for relief of symptoms. Quarantined until you have your coronavirus results. Follow-up through primary care physician for recheck in 1-2 days. Return to the emergency department immediately for any new, worsening, or concerning symptoms. Is patient prescribed a controlled substance at d/c from ED?: No Referrals: Kevin Ceballos MD [Primary Care Provider] - 1-2 days Time of Disposition: 00:30
--- NOTE | 2020-07-14 00:07 | XR ---
EXAMINATION TYPE: XR chest 2V DATE OF EXAM: 07/13/2020 COMPARISON: 12/02/2019 HISTORY: Cough. Fever. TECHNIQUE: FINDINGS: Heart and mediastinum are normal. Lungs are clear. Diaphragm is normal. Bony thorax appears normal. IMPRESSION: Normal chest. No change.
[2020-07-14 00:42] VITALS: PULSE 85; TEMP 98.9
== END 2020-07-14 00:42 | disposition home or self-care (01) ==
LOC: EC 22:29
DX: J06.9 Acute upper respiratory infection, unspecified (principal); J45.909 Unspecified asthma, uncomplicated; Z79.899 Other long term (current) drug therapy; Z88.1 Allergy status to other antibiotic agents; Z88.5 Allergy status to narcotic agent; Z88.8 Allergy status to other drugs, medicaments and biological substances; Z88.6 Allergy status to analgesic agent; Z88.0 Allergy status to penicillin; Z87.891 Personal history of nicotine dependence; Z93.0 Tracheostomy status; Z20.828 Contact with and (suspected) exposure to other viral communicable diseases
CPT/HCPCS: 87081; 87430; 71046; 99283; U0003

== ENCOUNTER 2021-03-24 20:10 | Emergency (ER) | payer BC, MEDICAID ==
[2021-03-24 22:08] LABS: Basophils # (A) 0.1 k/uL (0-0.2); Basophils % (A) 1 %; Eosinophils # (A) 0.2 k/uL (0-0.7); Eosinophils % (A) 3 %; HCT 42.2 % (34.0-46.0); HGB 14.6 gm/dL (11.4-16.0); Lymphocytes # (A) 2.3 k/uL (1.0-4.8); Lymphocytes % (A) 37 %; MCH 30.4 pg (25.0-35.0); MCHC 34.6 g/dL (31.0-37.0); MCV 87.9 fL (80.0-100.0); Mean Platelet Volume 6.9; Monocytes # (A) 0.3 k/uL (0-1.0); Monocytes % (A) 5 %; Neutrophils # (A) 3.3 k/uL (1.3-7.7); Neutrophils % (A) 53 %; Platelet Count 256 k/uL (150-450); RDW 11.5 % (11.5-15.5); WBC 6.2 k/uL (3.8-10.6)
[2021-03-24 22:10] LABS: Appearance,Urine Clear (Clear); Bacteria,Urine Rare /hpf; Bilirubin,Urine Negative (Negative); Blood,Urine Negative (Negative); Color,Urine Yellow; Glucose,Urine (UA) Negative (Negative); Ketones,Urine Negative (Negative); Leukocyte Esterase,Urine Small (Negative); Mucus,Urine Few /hpf; Nitrite,Urine Negative (Negative); PH, Urine 6.5 (5.0-8.0); Protein,Urine 1+ (Negative); Specific Gravity,Urine 1.036 (1.001-1.035); Squamous Epithelial Cell,Urine 10 /hpf (0-4); WBC,Urine 8 /hpf (0-5)
[2021-03-24 22:22] LABS: ALT 7 U/L (4-34); AST 19 U/L (14-36); African American GFR (CKD) >90 (>60 ml/min/1.73 sqM); Albumin 4.9 g/dL (3.5-5.0); Alkaline Phosphatase 86 U/L (38-126); Amylase 43 U/L (30-110); Anion Gap 8 mmol/L; Blood Urea Nitrogen 16 mg/dL (7-17); Calcium 9.6 mg/dL (8.4-10.2); Carbon Dioxide 27 mmol/L (22-30); Chloride 106 mmol/L (98-107); Glucose 86 mg/dL (74-99); Lipase 49 U/L (23-300); Non-African American GFR(CKD) >90 (>60 ml/min/1.73 sqM); Potassium 3.6 mmol/L (3.5-5.1); Sodium 141 mmol/L (137-145); Total Bilirubin 0.5 mg/dL (0.2-1.3); Total Protein 7.7 g/dL (6.3-8.2)
[2021-03-24] MEDS ORDERED: FAMOTIDINE 20 MG/2 ML VIAL IV STA (22:23)
[2021-03-24] MEDS ORDERED: MAG HYDROX/AL HYDROX/SIMETH 30 ML, HYOSCYAMINE ELIXIR 10 ML, LIDOCAINE VISCOUS 2% 10 ML PO STA ×3 (22:23)
[2021-03-24] MEDS ORDERED: ONDANSETRON 4 MG/2 ML VIAL IVP STA (22:23)
--- NOTE | 2021-03-24 23:22 | ED ---
General Adult HPI - General Chief complaint: Abdominal Pain Stated complaint: ABD pain Time Seen by Provider: 03/24/21 21:07 Source: patient, RN notes reviewed Mode of arrival: ambulatory Limitations: no limitations - History of Present Illness Initial comments: 20-year-old female without any significant past medical history presents to the emergency room for a chief complaint of nausea vomiting. Patient reports she has been nauseous and vomiting for the past for the past day. States she is also having upper abdominal pain. Patient does not have any fevers. Denies diarrhea. States the pain is worse on the left upper quadrant.Patient has no ot her complaints at this time including shortness of breath, chest pain, headache, or visual changes. - Related Data Home Medications Medication Instructions Recorded Confirmed 114/Iron A-G/Folate 1 1 each PO DAILY 12/02/19 04/19/20 [Prenate Elite Tablet] Albuterol Inhaler (Mhu) [Ventolin 1 - 2 puff INHALATION RT-Q6H PRN 12/13/19 04/19/20 Hfa Inhaler] Ferrous Sulfate [Iron] 325 mg PO DAILY 04/06/20 04/19/20 Omeprazole [PriLOSEC] 20 mg PO AC-BRKFST 04/06/20 04/19/20 Previous Rx's Medication Instructions Recorded Famotidine [Pepcid] 20 mg PO BID #30 tablet 03/24/21 Allergies Allergy/AdvReac Type Severity Reaction Status Date / Time cephalexin [From Keflex] Allergy Itching Verified 03/24/21 20:17 hydrocodone Allergy Unknown Verified 03/24/21 20:17 hydromorphone [From Dilaudid] Allergy Rash/Hives Verified 03/24/21 20:17 NSAIDS (Non-Steroidal Allergy Anaphylaxis Verified 03/24/21 20:17 Anti-Inflamma Penicillins Allergy Rash/Hives Verified 03/24/21 20:17 promethazine Allergy Rash/Hives Verified 03/24/21 20:17 Review of Systems ROS Statement: Those systems with pertinent positive or pertinent negative responses have been documented in the HPI. ROS Other: All systems not noted in ROS Statement are negative. Past Medical History Past Medical History: Asthma, Pneumonia Additional Past Medical History / Comment(s): trach kicked in throat by horse in july 2016, bilat pneumo History of Any Multi-Drug Resistant Organisms: None Reported Past Surgical History: No Surgical Hx Reported Additional Past Surgical History / Comment(s): Emergent tracheostomy 07/2016, 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 vocal cord surgeries, trach, chest tube Past Anesthesia/Blood Transfusion Reactions: No Reported Reaction Past Psychological History: Anxiety, Depression Smoking Status: Former smoker Past Alcohol Use History: Occasional Past Drug Use History: None Reported - Past Family History Brother(s) Family Medical History: Cancer General Exam Limitations: no limitations General appearance: alert, in no apparent distress Head exam: Present: atraumatic, normocephalic, normal inspection Eye exam: Present: normal appearance, PERRL, EOMI. Absent: scleral icterus, conjunctival injection, periorbital swelling ENT exam: Present: normal exam, mucous membranes moist Neck exam: Present: normal inspection, full ROM. Absent: tenderness, meningismus, lymphadenopathy Respiratory exam: Present: normal lung sounds bilaterally. Absent: respiratory distress, wheezes, rales, rhonchi, stridor Cardiovascular Exam: Present: regular rate, normal rhythm, normal heart sounds. Absent: systolic murmur, diastolic murmur, rubs, gallop, clicks GI/Abdominal exam: Present: soft, normal bowel sounds. Absent: distended, tenderness (mild epigastric and LUQ tenderness), guarding, rebound, rigid Neurological exam: Present: alert Course Vital Signs 03/24/21 20:14 Temperature 98.2 F Pulse Rate 66 Respiratory 20 Rate Blood Pressure 152/81 O2 Sat by Pulse 100 Oximetry Medical Decision Making - Medical Decision Making Vitals are stable. Patient is well-appearing. She has minimal epigastric and left upper quadrant tenderness. CBC CMP unremarkable. Urinalysis is negative. Abdominal ultrasound was performed which was normal. No gallstones or dilated ducts. Amylase and lipase are normal. At this time we will treat patient for gastritis with antacids. We will refer her to GI. If she has any worsening symptoms she'll return to the emergency room. - Lab Data Result diagrams: 03/24/21 21:57 03/24/21 21:57 Lab Results 03/24/21 03/24/21 03/24/21 Range/Units 21:57 21:57 21:57 WBC 6.2 (3.8-10.6) k/uL RBC 4.80 (3.80-5.40) m/uL Hgb 14.6 (11.4-16.0) gm/dL Hct 42.2 (34.0-46.0) % MCV 87.9 (80.0-100.0) fL MCH 30.4 (25.0-35.0) pg MCHC 34.6 (31.0-37.0) g/dL RDW 11.5 (11.5-15.5) % Plt Count 256 (150-450) k/uL MPV 6.9 Neutrophils % 53 % Lymphocytes % 37 % Monocytes % 5 % Eosinophils % 3 % Basophils % 1 % Neutrophils # 3.3 (1.3-7.7) k/uL Lymphocytes # 2.3 (1.0-4.8) k/uL Monocytes # 0.3 (0-1.0) k/uL Eosinophils # 0.2 (0-0.7) k/uL Basophils # 0.1 (0-0.2) k/uL Sodium (137-145) mmol/L Potassium (3.5-5.1) mmol/L Chloride (98-107) mmol/L Carbon Dioxide (22-30) mmol/L Anion Gap mmol/L BUN (7-17) mg/dL Creatinine (0.52-1.04) mg/dL Est GFR (CKD-EPI)AfAm (>60 ml/min/1.73 sqM) Est GFR (CKD-EPI)NonAf (>60 ml/min/1.73 sqM) Glucose (74-99) mg/dL Calcium (8.4-10.2) mg/dL Total Bilirubin (0.2-1.3) mg/dL AST (14-36) U/L ALT (4-34) U/L Alkaline Phosphatase (38-126) U/L Total Protein (6.3-8.2) g/dL Albumin (3.5-5.0) g/dL Amylase (30-110) U/L Lipase (23-300) U/L Urine Color Yellow Urine Appearance Clear (Clear) Urine pH 6.5 (5.0-8.0) Ur Specific [place] 1.036 H (1.001-1.035) Urine Protein 1+ H (Negative) Urine Glucose (UA) Negative (Negative) Urine Ketones Negative (Negative) Urine Blood Negative (Negative) Urine Nitrite Negative (Negative) Urine Bilirubin Negative (Negative) Urine Urobilinogen 3.0 (<2.0) mg/dL Ur Leukocyte Esterase Small H (Negative) Urine WBC 8 H (0-5) /hpf Ur Squamous Epith Cells 10 H (0-4) /hpf Urine Bacteria Rare H (None) /hpf Urine Mucus Few H (None) /hpf Urine HCG, Qual Not Detected (Not Detectd) 03/24/21 Range/Units 21:57 WBC (3.8-10.6) k/uL RBC (3.80-5.40) m/uL Hgb (11.4-16.0) gm/dL Hct (34.0-46.0) % MCV (80.0-100.0) fL MCH (25.0-35.0) pg MCHC (31.0-37.0) g/dL RDW (11.5-15.5) % Plt Count (150-450) k/uL MPV Neutrophils % % Lymphocytes % % Monocytes % % Eosinophils % % Basophils % % Neutrophils # (1.3-7.7) k/uL Lymphocytes # (1.0-4.8) k/uL Monocytes # (0-1.0) k/uL Eosinophils # (0-0.7) k/uL Basophils # (0-0.2) k/uL Sodium 141 (137-145) mmol/L Potassium 3.6 (3.5-5.1) mmol/L Chloride 106 (98-107) mmol/L Carbon Dioxide 27 (22-30) mmol/L Anion Gap 8 mmol/L BUN 16 (7-17) mg/dL Creatinine 0.72 (0.52-1.04) mg/dL Est GFR (CKD-EPI)AfAm >90 (>60 ml/min/1.73 sqM) Est GFR (CKD-EPI)NonAf >90 (>60 ml/min/1.73 sqM) Glucose 86 (74-99) mg/dL Calcium 9.6 (8.4-10.2) mg/dL Total Bilirubin 0.5 (0.2-1.3) mg/dL AST 19 (14-36) U/L ALT 7 (4-34) U/L Alkaline Phosphatase 86 (38-126) U/L Total Protein 7.7 (6.3-8.2) g/dL Albumin 4.9 (3.5-5.0) g/dL Amylase 43 (30-110) U/L Lipase 49 (23-300) U/L Urine Color Urine Appearance (Clear) Urine pH (5.0-8.0) Ur Specific [place] (1.001-1.035) Urine Protein (Negative) Urine Glucose (UA) (Negative) Urine Ketones (Negative) Urine Blood (Negative) Urine Nitrite (Negative) Urine Bilirubin (Negative) Urine Urobilinogen (<2.0) mg/dL Ur Leukocyte Esterase (Negative) Urine WBC (0-5) /hpf Ur Squamous Epith Cells (0-4) /hpf Urine Bacteria (None) /hpf Urine Mucus (None) /hpf Urine HCG, Qual (Not Detectd) Disposition Clinical Impression: Abdominal pain, Gastritis Disposition: HOME SELF-CARE Condition: Good Instructions (If sedation given, give patient instructions): Abdominal Pain (ED) Additional Instructions: Please take Pepcid as directed. Follow-up with primary care and GI. If you're having worsening symptoms return to the emergency room. Prescriptions: Famotidine [Pepcid] 20 mg PO BID #30 tablet Is patient prescribed a controlled substance at d/c from ED?: No Referrals: Kevin Ceballos MD [Primary Care Provider] - 1-2 days Stacey Matthew MD [STAFF PHYSICIAN] - 1-2 days Time of Disposition: 23:35
[2021-03-24] MEDS ORDERED: MORPHINE SULFATE 4 MG/ML SYRINGE IVP STA (23:26)
--- NOTE | 2021-03-24 23:27 | US ---
EXAMINATION TYPE: US abdomen complete DATE OF EXAM: 03/24/2021 COMPARISON: US CLINICAL HISTORY: pain. Epigastric and left-sided pain. EXAM MEASUREMENTS: Liver Length: 15.1 cm Gallbladder Wall: 0.25 cm CBD: 0.56 cm Spleen: 10.2 cm Right Kidney: 11.0 x 5.2 x 3.5 cm Left Kidney: 10.4 x 4.2 x 5.0 cm Pancreas: Appears wnl. Liver: Appears wnl. Gallbladder: Appears anechoic. Evidence for sonographic Almodovar's sign: No. CBD: Measures upper limits of normal. Spleen: Appears wnl. Right Kidney: Appears wnl. Left Kidney: Limited due to gas. Images taken prone. Pyramids appear to be prominent. Upper IVC: Appears wnl. Abd Aorta: Appears wnl. Bifurcation obscured by gas. There is no sign of ascites. IMPRESSION: Normal complete abdominal sonogram. No gallstones or dilated ducts.
[2021-03-24 23:39] VITALS: RESP 18; TEMP 98.1
[2021-03-24 23:48] VITALS: BP 115/73; PULSE 72
== END 2021-03-24 23:48 | disposition home or self-care (01) ==
LOC: EC 20:10
DX: K29.70 Gastritis, unspecified, without bleeding (principal); J45.909 Unspecified asthma, uncomplicated; Z79.899 Other long term (current) drug therapy; Z88.0 Allergy status to penicillin; Z88.1 Allergy status to other antibiotic agents; Z88.5 Allergy status to narcotic agent; Z88.6 Allergy status to analgesic agent; Z88.8 Allergy status to other drugs, medicaments and biological substances; Z87.891 Personal history of nicotine dependence
CPT/HCPCS: 36415; 80053; 82150; 83690; 85025; 81001; 81025; 76700; 99284; 96374; 96375 ×2; J2270; J2405

== ENCOUNTER 2021-10-06 17:15 | Emergency (ER) | payer BC, OTHER ==
[2021-10-06 18:52] VITALS: TEMP 100.9
--- NOTE | 2021-10-06 19:27 | XR ---
EXAMINATION TYPE: XR chest 2V DATE OF EXAM: 10/06/2021 COMPARISON: NONE HISTORY: Short of breath TECHNIQUE: 2 views FINDINGS: Heart and mediastinum are normal. Lungs are clear. Costophrenic angles are clear. IMPRESSION: Normal chest. No adverse change.
[2021-10-06] MEDS ORDERED: ACETAMINOPHEN TAB 500 MG TAB PO STA (20:23)
--- NOTE | 2021-10-06 20:24 | ED ---
General Adult HPI - General Chief complaint: Shortness of Breath Stated complaint: RUSLAN Time Seen by Provider: 10/06/21 19:50 Source: patient, RN notes reviewed Mode of arrival: ambulatory Limitations: no limitations - History of Present Illness Initial comments: 21-year-old female with a past medical history of asthma presents to the emergency room for a chief complaint of fever. Patient had cough congestion starting 2 days ago. He tested negative for gonzalez virus earlier today. However today she developed a fever and wanted to be evaluated with a chest x- ray. Patient states she has asthma and started to feel little bit short of breath as well.Patient has no other complaints at this time including chest pain, abdominal pain, nausea or vomiting, headache, or visual changes. - Related Data Home Medications Medication Instructions Recorded Confirmed Acetaminophen Tab [Tylenol Tab] 1,000 mg PO Q6HR PRN 10/06/21 10/06/21 Previous Rx's Medication Instructions Recorded Albuterol Nebulized [Ventolin 2.5 mg INHALATION Q6H 6 Days #75 ml 10/06/21 Nebulized] Benzonatate [Tessalon Perles] 200 mg PO Q8H PRN #15 capsule 10/06/21 guaiFENesin [Mucinex] 600 mg PO Q12HR PRN #20 tab 10/06/21 predniSONE 50 mg PO DAILY #5 tablet 10/06/21 Allergies Allergy/AdvReac Type Severity Reaction Status Date / Time cephalexin [From Keflex] Allergy Itching Verified 10/06/21 21:17 hydrocodone Allergy Unknown Verified 10/06/21 21:17 hydromorphone [From Dilaudid] Allergy Rash/Hives Verified 10/06/21 21:17 NSAIDS (Non-Steroidal Allergy Anaphylaxis Verified 10/06/21 21:17 Anti-Inflamma Penicillins Allergy Rash/Hives Verified 10/06/21 21:17 promethazine Allergy Rash/Hives Verified 10/06/21 21:17 Review of Systems ROS Statement: Those systems with pertinent positive or pertinent negative responses have been documented in the HPI. ROS Other: All systems not noted in ROS Statement are negative. Past Medical History Past Medical History: Asthma, Pneumonia Additional Past Medical History / Comment(s): trach kicked in throat by horse in july 2016, bilat pneumo History of Any Multi-Drug Resistant Organisms: None Reported Past Surgical History: No Surgical Hx Reported Additional Past Surgical History / Comment(s): Emergent tracheostomy 07/2016, 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 vocal cord surgeries, trach, chest tube Past Anesthesia/Blood Transfusion Reactions: No Reported Reaction Past Psychological History: Anxiety, Depression Smoking Status: Former smoker Past Alcohol Use History: Occasional Past Drug Use History: None Reported - Past Family History Brother(s) Family Medical History: Cancer General Exam Limitations: no limitations General appearance: alert, in no apparent distress Head exam: Present: atraumatic Eye exam: Present: normal appearance, PERRL, EOMI. Absent: scleral icterus, conjunctival injection ENT exam: Present: normal exam, normal oropharynx, mucous membranes moist, nor mal external ear exam Neck exam: Present: normal inspection, full ROM. Absent: tenderness Respiratory exam: Present: normal lung sounds bilaterally. Absent: respiratory distress, wheezes Cardiovascular Exam: Present: regular rate, normal rhythm, normal heart sounds GI/Abdominal exam: Present: soft, normal bowel sounds. Absent: distended, tenderness Neurological exam: Present: alert Course Vital Signs 10/06/21 10/06/21 18:48 20:50 Temperature 100.9 F H Pulse Rate 100 Respiratory 22 18 Rate Blood Pressure 115/75 O2 Sat by Pulse 98 Oximetry EKG Findings - EKG Comments: EKG Findings:: Normal sinus rhythm, ventricular rate 97, AR interval 170, QTC 424 Medical Decision Making - Medical Decision Making Vitals are stable. Patient is well-appearing. He shouldn't tested negative for influenza RSV and rotavirus. Chest x-ray shows a normal chest. No adverse change. Patient likely has a viral upper respiratory infection. Will be treated symptomatically. Patient did feel her heart was racing an EKG was obtained which showed normal sinus rhythm with a ventricular rate of 97. Encouraged her to follow up with primary care regarding this however if it happens again to return to the emergency room. - Lab Data Lab Results 10/06/21 Range/Units 20:48 Influenza Type A RNA Not Detected (Not Detectd) Influenza Type B (PCR) Not Detected (Not Detectd) RSV (PCR) Negative (Negative) SARS-CoV-2 (PCR) Not Detected (Not Detectd) Disposition Clinical Impression: Cough, Sinusitis Disposition: HOME SELF-CARE Condition: Good Instructions (If sedation given, give patient instructions): Asthma (ED), Acute Cough (ED) Additional Instructions: Take Tylenol for fever. Take medications as directed. Follow-up with your doctor. If you have worsening symptoms return to the emergency room. Prescriptions: guaiFENesin [Mucinex] 600 mg PO Q12HR PRN #20 tab PRN Reason: Congestion predniSONE 50 mg PO DAILY #5 tablet Benzonatate [Tessalon Perles] 200 mg PO Q8H PRN #15 capsule PRN Reason: Cough Albuterol Nebulized [Ventolin Nebulized] 2.5 mg INHALATION Q6H 6 Days #75 ml Is patient prescribed a controlled substance at d/c from ED?: No Referrals: Kevin Ceballos MD [Primary Care Provider] - 1-2 days Time of Disposition: 23:04
[2021-10-06] MEDS ORDERED: ALBUTEROL NEBULIZED 2.5 MG/3 ML INHALATION STA (20:56)
[2021-10-06] MEDS ORDERED: ALBUTEROL HFA INHALER INHALATION STA (21:51)
[2021-10-06 23:13] VITALS: BP 120/72; PULSE 96; RESP 20
== END 2021-10-06 23:12 | disposition home or self-care (01) ==
LOC: EC 17:15
DX: R05.1 Acute cough (principal); J01.90 Acute sinusitis, unspecified; J45.909 Unspecified asthma, uncomplicated; F41.9 Anxiety disorder, unspecified; F32.9 Major depressive disorder, single episode, unspecified; Z20.822 Contact with and (suspected) exposure to COVID-19; Z88.0 Allergy status to penicillin; Z88.1 Allergy status to other antibiotic agents; Z88.5 Allergy status to narcotic agent; Z87.891 Personal history of nicotine dependence; Z88.6 Allergy status to analgesic agent; Z79.899 Other long term (current) drug therapy
CPT/HCPCS: 71046; 87502; 87634; 87635; 93005; 94640; 99285

== ENCOUNTER → 2021-10-06 | Outpatient (CLI) | payer BC, OTHER | END | disposition home or self-care (01) | LOC: LABWHC1 08:33 | PROVIDERS: ATTEND Emergency Medicine | DX: Z20.822 Contact with and (suspected) exposure to COVID-19 (principal) | CPT/HCPCS: 87635 ==

== ENCOUNTER 2021-10-07 06:50 | Emergency (ER) | payer BC ==
[2021-10-07 06:54] VITALS: BP 121/79
[2021-10-07] MEDS ORDERED: DEXAMETHASONE SOD PHOSPHATE 10 MG/ML 1 ML VIAL IM STA (07:20)
[2021-10-07] MEDS ORDERED: IPRATROPIUM-ALBUTEROL 3 ML NEB INHALATION STA (07:20)
--- NOTE | 2021-10-07 08:06 | XR ---
EXAMINATION TYPE: XR chest 2V DATE OF EXAM: 10/07/2021 COMPARISON: Chest x-ray from yesterday HISTORY: Difficulty in breathing. TECHNIQUE: Frontal and lateral views of the chest are obtained. FINDINGS: There is no suspicious new focal air space opacity, pleural effusion, or pneumothorax seen . The cardiac silhouette size is stable and within normal limits. Underlying scoliotic curvature red emonstrated. IMPRESSION: No acute pulmonary process. No significant change from one day earlier.
[2021-10-07] MEDS ORDERED: ACETAMINOPHEN TAB 325 MG TAB PO STA (08:25)
[2021-10-07 08:34] VITALS: RESP 24
[2021-10-07 08:36] VITALS: TEMP 98.7
--- NOTE | 2021-10-07 08:36 | ED ---
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 Patient reports no new symptoms or complaints at this time. She is otherwise well-appearing. She does have a small wheeze interest which is her baseline secondary to several surgeries. She denied any chest pain headache nausea vomiting diarrhea constipation fever fatigue chills. - Related Data Home Medications Medication Instructions Recorded Confirmed Acetaminophen Tab [Tylenol Tab] 1,000 mg PO Q6HR PRN 10/06/21 10/07/21 Previous Rx's Medication Instructions Recorded Albuterol Nebulized [Ventolin 2.5 mg INHALATION Q6H 6 Days #75 ml 10/06/21 Nebulized] Benzonatate [Tessalon Perles] 200 mg PO Q8H PRN #15 capsule 10/06/21 guaiFENesin [Mucinex] 600 mg PO Q12HR PRN #20 tab 10/06/21 predniSONE 50 mg PO DAILY #5 tablet 10/06/21 Allergies Allergy/AdvReac Type Severity Reaction Status Date / Time cephalexin [From Keflex] Allergy Itching Verified 10/07/21 07:52 hydrocodone Allergy Unknown Verified 10/07/21 07:52 hydromorphone [From Dilaudid] Allergy Rash/Hives Verified 10/07/21 07:52 NSAIDS (Non-Steroidal Allergy Anaphylaxis Verified 10/07/21 07:52 Anti-Inflamma Penicillins Allergy Rash/Hives Verified 10/07/21 07:52 promethazine Allergy Rash/Hives Verified 10/07/21 07:52 Review of Systems ROS Statement: Those systems with pertinent positive or pertinent negative responses have been documented in the HPI. ROS Other: All systems not noted in ROS Statement are negative. Past Medical History Past Medical History: Asthma, Pneumonia Additional Past Medical History / Comment(s): trach kicked in throat by horse in july 2016, bilat pneumo History of Any Multi-Drug Resistant Organisms: None Reported Past Surgical History: No Surgical Hx Reported Additional Past Surgical History / Comment(s): Emergent tracheostomy 07/2016, 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 vocal cord surgeries, trach, chest tube Past Anesthesia/Blood Transfusion Reactions: No Reported Reaction Past Psychological History: Anxiety, Depression Smoking Status: Former smoker Past Alcohol Use History: Occasional Past Drug Use History: None Reported - Past Family History Brother(s) Family Medical History: Cancer General Exam Limitations: no limitations General appearance: alert, in no apparent distress Head exam: Present: atraumatic, normocephalic, normal inspection Eye exam: Present: normal appearance, PERRL, EOMI. Absent: scleral icterus, conjunctival injection, periorbital swelling ENT exam: Present: normal exam, mucous membranes moist Neck exam: Present: normal inspection Respiratory exam: Present: normal lung sounds bilaterally. Absent: respiratory distress, wheezes, rales, rhonchi, stridor Cardiovascular Exam: Present: regular rate, normal rhythm, normal heart sounds. Absent: systolic murmur, diastolic murmur, rubs, gallop, clicks Extremities exam: Present: normal inspection, full ROM, normal capillary refill. Absent: tenderness, pedal edema, joint swelling, calf tenderness Neurological exam: Present: alert, oriented X3 Psychiatric exam: Present: normal affect, normal mood Skin exam: Present: warm, dry, intact, normal color. Absent: rash Course Vital Signs 10/07/21 10/07/21 10/07/21 06:50 07:47 07:54 Temperature 101 F H Pulse Rate 104 H 114 H Respiratory 28 H 22 Rate Blood Pressure 121/79 O2 Sat by Pulse 97 Oximetry 10/07/21 08:04 Temperature Pulse Rate 114 H Respiratory Rate Blood Pressure O2 Sat by Pulse Oximetry Medical Decision Making - Medical Decision Making 21-year-old female complaining of shortness of breath, unable to mushroom picker stero ids yesterday. 2 mg of Decadron, DuoNeb, chest x-ray ordered. Chest x-ray shows no acute process no change from yesterday. Patient states that she is feeling better. Patient is took Tylenol prior to arrival for fever and cannot take Motrin due to an ALLERGY. Case discussed with Dr. Schaefer patient discharge home with follow-up primary care. - Radiology Data Radiology results: report reviewed, image reviewed X-ray no acute cardiopulmonary process. No significant change from one earlier. Disposition Clinical Impression: Sinusitis Disposition: HOME SELF-CARE Condition: Stable Instructions (If sedation given, give patient instructions): Sinusitis (ED) Additional Instructions: Please return to the Emergency Department if symptoms worsen or any other concerns. Follow-up with primary care 1-2 days. 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 Take steroids as prescribed. Take other medications as prescribed. Is patient prescribed a controlled substance at d/c from ED?: No Referrals: Kevin Ceballos MD [Primary Care Provider] - 1-2 days Time of Disposition: 08:35
[2021-10-07 09:24] VITALS: PULSE 79
== END 2021-10-07 09:24 | disposition home or self-care (01) ==
LOC: EC 06:50
DX: J32.9 Chronic sinusitis, unspecified (principal); J45.909 Unspecified asthma, uncomplicated; Z79.52 Long term (current) use of systemic steroids; Z87.891 Personal history of nicotine dependence; Z88.0 Allergy status to penicillin; Z88.1 Allergy status to other antibiotic agents; Z88.5 Allergy status to narcotic agent; Z88.6 Allergy status to analgesic agent
CPT/HCPCS: 94640; 71046; 99285; 96372; J1100

== ENCOUNTER → 2021-12-01 | Outpatient (CLI) | payer BC, OTHER | END | disposition home or self-care (01) | LOC: LABWHC1 15:57 | PROVIDERS: ATTEND Emergency Medicine | DX: Z20.822 Contact with and (suspected) exposure to COVID-19 (principal) | CPT/HCPCS: 87635 ==

== ENCOUNTER → 2021-12-04 | Outpatient (CLI) | payer BC, OTHER | END | disposition home or self-care (01) | LOC: LABWHC1 16:33 | PROVIDERS: ATTEND Emergency Medicine | DX: U07.1 COVID-19 (principal) | CPT/HCPCS: 87635 ==

== ENCOUNTER 2022-04-28 06:47 | Emergency (ER) | payer BC ==
[2022-04-28 06:57] VITALS: TEMP 98.9
[2022-04-28] MEDS ORDERED: diphenhydrAMINE 50 MG/ML 1 ML VIAL IVP STA (07:41)
[2022-04-28] MEDS ORDERED: METOCLOPRAMIDE 5 MG/ML 2 ML VIAL IVP STA (07:41)
[2022-04-28] MEDS ORDERED: SODIUM CHLORIDE 0.9% 1,000 ML IV ONE (07:41)
--- NOTE | 2022-04-28 08:18 | XR ---
EXAMINATION TYPE: XR chest 2V DATE OF EXAM: 04/28/2022 COMPARISON: Chest x-ray October 07, 2021 HISTORY: Shortness of breath and cough. TECHNIQUE: Frontal and lateral views of the chest are obtained. FINDINGS: There is no focal air space opacity, pleural effusion, or pneumothorax seen. The cardiac silhouette size is within normal limits. Underlying scoliosis is redemonstrated. Overlying bilateral metallic nipple ornaments are incidentally noted. IMPRESSION: No suspicious acute airspace opacity.
[2022-04-28] MEDS ORDERED: BEBTELOVIMAB (EUA) 175 MG/2 ML VIAL IV ONE (08:30)
--- NOTE | 2022-04-28 08:58 | ED ---
URI HPI - General Chief Complaint: Upper Respiratory Infection Stated Complaint: covid+ Time Seen by Provider: 04/28/22 07:15 Source: patient, family Mode of arrival: ambulatory Limitations: no limitations - History of Present Illness Initial Comments: 21-year-old female with past medical history of facial trauma, tracheal perforation, bilateral pneumothoraces with chronic respiratory issues presents to emergency department complaining of headache, nausea, decreased oral intake. She is a hospital employee. Took a home Covid test yesterday which was positive. She took some Tylenol at 5:30 this morning for a temp of 103. Continues to have a global headache without vision changes. No neck pain or stiffness. Denies chest pain. Admits to a burning sensation in her "lungs". Patient has previously vaccinated for Covid. Did have covid infection in November. Denies any vomiting or diarrhea. No concerns for . No other alleviating, precipitating or modifying factors - Related Data Home Medications Medication Instructions Recorded Confirmed Acetaminophen Tab [Tylenol Tab] 1,000 mg PO Q6HR PRN 10/06/21 10/07/21 Previous Rx's Medication Instructions Recorded Albuterol Nebulized [Ventolin 2.5 mg INHALATION Q6H 6 Days #75 ml 10/06/21 Nebulized] Benzonatate [Tessalon Perles] 200 mg PO Q8H PRN #15 capsule 10/06/21 guaiFENesin [Mucinex] 600 mg PO Q12HR PRN #20 tab 10/06/21 predniSONE 50 mg PO DAILY #5 tablet 10/06/21 Allergies Allergy/AdvReac Type Severity Reaction Status Date / Time cephalexin [From Keflex] Allergy Itching Verified 04/28/22 06:57 hydrocodone Allergy Unknown Verified 04/28/22 06:57 hydromorphone [From Dilaudid] Allergy Rash/Hives Verified 04/28/22 06:57 NSAIDS (Non-Steroidal Allergy Anaphylaxis Verified 04/28/22 06:57 Anti-Inflamma Penicillins Allergy Rash/Hives Verified 04/28/22 06:57 promethazine Allergy Rash/Hives Verified 04/28/22 06:57 Review of Systems ROS Statement: Those systems with pertinent positive or pertinent negative responses have been documented in the HPI. ROS Other: All systems not noted in ROS Statement are negative. Past Medical History Past Medical History: Asthma, Pneumonia Additional Past Medical History / Comment(s): trach kicked in throat by horse in july 2016, bilat pneumo History of Any Multi-Drug Resistant Organisms: None Reported Past Surgical History: No Surgical Hx Reported Additional Past Surgical History / Comment(s): Emergent tracheostomy 07/2016, 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 vocal cord surgeries, trach, chest tube Past Anesthesia/Blood Transfusion Reactions: No Reported Reaction Past Psychological History: Anxiety, Depression Smoking Status: Former smoker Past Alcohol Use History: Occasional Past Drug Use History: None Reported - Past Family History Brother(s) Family Medical History: Cancer General Exam Limitations: no limitations General appearance: alert, in no apparent distress Head exam: Present: atraumatic, normocephalic, normal inspection Eye exam: Present: normal appearance, PERRL, EOMI. Absent: scleral icterus, conjunctival injection, periorbital swelling ENT exam: Present: normal exam, mucous membranes moist Neck exam: Present: normal inspection. Absent: tenderness, meningismus, lymphadenopathy Respiratory exam: Present: normal lung sounds bilaterally. Absent: respiratory distress, wheezes, rales, rhonchi, stridor Cardiovascular Exam: Present: regular rate, normal rhythm, normal heart sounds. Absent: systolic murmur, diastolic murmur, rubs, gallop, clicks GI/Abdominal exam: Present: soft, normal bowel sounds. Absent: distended, tenderness, guarding, rebound, rigid Extremities exam: Present: normal inspection, full ROM, normal capillary refill. Absent: tenderness, pedal edema, joint swelling, calf tenderness Back exam: Present: normal inspection Neurological exam: Present: alert, oriented X3, CN II-XII intact Psychiatric exam: Present: normal affect, normal mood Skin exam: Present: warm, dry, intact, normal color. Absent: rash Course Vital Signs 04/28/22 04/28/22 06:54 10:08 Temperature 98.9 F Pulse Rate 98 72 Respiratory 20 16 Rate Blood Pressure 110/72 96/58 O2 Sat by Pulse 96 100 Oximetry Medical Decision Making - Medical Decision Making Upon arrival the patient is placed into room 11. History and physical exam was performed. IV access established and patient was given a liter bolus of normal saline, 10 reglan and 25 mg of Benadryl. She is swabbed for Covid as she does need a positive test documented. Her test is positive. She will be given antibody infusion due to her history of traumatic upper airway injury. Patient will be discharged home. Instructed to take Tylenol for fevers. Increase fluid intake. Follow-up the primary care doctor in 2-4 days or return for any new or worsening symptoms. Patient discharged home in stable condition - Lab Data Lab Results 04/28/22 Range/Units 07:49 Coronavirus (PCR) Detected A (Not Detectd) Disposition Clinical Impression: COVID-19, Cephalgia Disposition: HOME SELF-CARE Condition: Stable Instructions (If sedation given, give patient instructions): COVID-19 (Coronavirus Disease 2019) (ED) Additional Instructions: You were given antibody infusion. Please follow-up with your doctor in 2-4 days and return for any new or worsening symptoms Is patient prescribed a controlled substance at d/c from ED?: No Referrals: Kevin Ceballos MD [Primary Care Provider] - 1-2 days Time of Disposition: 08:59
[2022-04-28 10:09] VITALS: BP 96/58; PULSE 72; RESP 16
== END 2022-04-28 10:10 | disposition home or self-care (01) ==
LOC: EC 06:47
DX: U07.1 COVID-19 (principal); R51.9 Headache, unspecified; J45.909 Unspecified asthma, uncomplicated; Z87.891 Personal history of nicotine dependence; Z88.1 Allergy status to other antibiotic agents; Z88.5 Allergy status to narcotic agent; Z88.6 Allergy status to analgesic agent; Z88.0 Allergy status to penicillin; Z88.8 Allergy status to other drugs, medicaments and biological substances
CPT/HCPCS: 87635; 71046; 99284; 96374; 96375; 96361; J1200; J2765; Q0222

== ENCOUNTER 2023-05-14 04:03 | Emergency (ER) | payer BC ==
[2023-05-14 04:15] VITALS: BP 140/87; PULSE 72; RESP 18; TEMP 97.7
--- NOTE | 2023-05-14 05:05 | ED ---
General Adult HPI - General Chief complaint: ENT Stated complaint: Left Ear ache Time Seen by Provider: 05/14/23 04:37 Source: patient Mode of arrival: ambulatory Limitations: no limitations - History of Present Illness Initial comments: Dictation was produced using [employer] dictation software. please excuse any grammatical, word or spelling errors. Chief Complaint: 23-year-old female presents to the ER for sore throat and left ear pain History of Present Illness: To 23-year-old female she has no significant past medical history. Just returned from [place] after having the medication with her parents. Over the last 1-2 days she's been complaining of left ear pain and sore throat. Denies any obvious sick contacts. Denies any fever or constitutional symptoms. The ROS documented in this emergency department record has been reviewed and confirmed by me. Those systems with pertinent positive or negative responses have been documented in the HPI. All other systems are other negative and/or noncontributory. - Related Data Home Medications Medication Instructions Recorded Confirmed Acetaminophen Tab [Tylenol Tab] 1,000 mg PO Q6HR PRN 10/06/21 01/28/23 Previous Rx's Medication Instructions Recorded Azithromycin [Zithromax Z Pack] 1 tab PO DIRECTED #6 tab 05/14/23 Allergies Allergy/AdvReac Type Severity Reaction Status Date / Time cephalexin [From Keflex] Allergy Itching Verified 05/14/23 04:16 fentanyl Allergy Unknown Verified 05/14/23 04:16 hydrocodone Allergy Unknown Verified 05/14/23 04:16 hydromorphone [From Dilaudid] Allergy Rash/Hives Verified 05/14/23 04:16 morphine Allergy Unknown Verified 05/14/23 04:16 NSAIDS (Non-Steroidal Allergy Anaphylaxis Verified 05/14/23 04:16 Anti-Inflamma Penicillins Allergy Rash/Hives Verified 05/14/23 04:16 promethazine Allergy Rash/Hives Verified 05/14/23 04:16 Review of Systems ROS Statement: Those systems with pertinent positive or pertinent negative responses have been documented in the HPI. ROS Other: All systems not noted in ROS Statement are negative. Past Medical History Past Medical History: Asthma, Pneumonia Additional Past Medical History / Comment(s): trach kicked in throat by horse in july 2016, bilat pneumo History of Any Multi-Drug Resistant Organisms: None Reported Past Surgical History: No Surgical Hx Reported Additional Past Surgical History / Comment(s): Emergent tracheostomy 07/2016, 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 vocal cord surgeries, trach, chest tube Past Anesthesia/Blood Transfusion Reactions: No Reported Reaction Past Psychological History: Anxiety, Depression Smoking Status: Former smoker Past Alcohol Use History: Occasional Past Drug Use History: None Reported - Past Family History Brother(s) Family Medical History: Cancer General Exam - General Exam Comments Initial Comments: PHYSICAL EXAM: General Impression: Alert and oriented x3, not in acute distress HEENT: Normocephalic atraumatic, extra-ocular movements intact, pupils equal and reactive to light bilaterally, mucous membranes moist, bulging left tympanic membrane, erythematous posterior oropharynx with tonsillar swelling with minimal exudates Cardiovascular: Heart regular rate and rhythm Chest: Able to complete full sentences, no retractions, no tachypnea Abdomen: abdomen soft, non-tender, non-distended, no organomegaly Musculoskeletal: Pulses present and equal in all extremities, no peripheral edema Motor: no focal deficits noted Neurological: CN II-XII grossly intact, no focal motor or sensory deficits noted Skin: Intact with no visualized rashes Psych: Normal affect and mood Limitations: no limitations Course Vital Signs 05/14/23 04:12 Temperature 97.7 F Pulse Rate 72 Respiratory 18 Rate Blood Pressure 140/87 O2 Sat by Pulse 98 Oximetry Medical Decision Making - Medical Decision Making Was pt. sent in by a medical professional or institution (RAEANN Ordaz, EMAIL DESIGNER, urgent care, hospital, or alf...) When possible be specific @ -No Did you speak to anyone other than the patient for history (EMS, parent, family, police, friend...)? What history was obtained from this source @ -No Did you review nursing and triage notes (agree or disagree)? Why? @ -I reviewed and agree with nursing and triage notes Were old charts reviewed (outside hosp., previous admission, EMS record, old EKG, old radiological studies, urgent care reports/EKG's, alf records)? Report findings @ -No old charts were reviewed Differential Diagnosis (chest pain, altered mental status, abdominal pain women, abdominal pain men, vaginal bleeding, musculoskeletal, weakness, fever, dyspnea, syncope, headache, dizziness, GI bleed, back pain, seizure, CVA, palpatations, mental health)? @ -Strep throat, mononucleosis, peritonsillar abscess, viral pharyngitis EKG interpreted by me (3pts min.). @ -None done X-rays interpreted by me (1pt min.). @ -None done CT interpreted by me (1pt min.). @ -None done U/S interpreted by me (1pt. min.). @ -None done What testing was considered but not performed or refused? (CT, X-rays, U/S, labs)? Why? @ -None What meds were considered but not given or refused? Why? @ -None Did you discuss the management of the patient with other professionals (professionals i.e. Dr., PA, EMAIL DESIGNER, lab, RT, psych nurse, social media community manager, thermodynamics engineer, teacher, seal delivery vehicle officer, protective services case worker)? Give summary @ -No Was smoking cessation discussed for >3mins.? @ -No Was critical care preformed (if so, how long)? @ -No Were there social determinants of health that impacted care today? How? (Homelessness, low income, unemployed, alcoholism, drug addiction, transportation, low edu. Level, literacy, decrease access to med. care, group home, rehab)? @ -No Was there de-escalation of care discussed even if they declined (Discuss DNR or withdrawal of care, Hospice)? DNR status @ -No What co-morbidities impacted this encounter? (DM, HTN, Smoking, COPD, CAD, Cancer, CVA, ARF, Chemo, Hep., AIDS, mental health diagnosis, sleep apnea, morbid obesity)? @ -None Was patient admitted / discharged? Hospital course, mention meds given and route, prescriptions, significant lab abnormalities, going to OR and other pertinent info. @ -23-year-old female presents with sore throat and ear pain. Vital signs upon arrival are within acceptable limits. Strep test negative. Pending urine hCG. Patient does have physical exam findings to suggest left otitis media. Patient given Z-Pa. Patient discharged Undiagnosed new problem with uncertain prognosis? @ -No Drug Therapy requiring intensive monitoring for toxicity (Heparin, Nitro, Insulin, Cardizem)? @ -No Were any procedures done? @ -No Diagnosis/symptom? Acute, or Chronic, or Acute on Chronic? Uncomplicated (without systemic symptoms) or Complicated (systemic symptoms)? @ -1. Viral pharyngitis, 2. Otitis media Side effects of treatment? @ -No Exacerbation, Progression, or Severe Exacerbation? @ -No Poses a threat to life or bodily function? How? (Chest pain, [place], [place], pneumonia, PE, COPD, DKA, ARF, appy, cholecystitis, CVA, Diverticulitis, Homicidal, Suicidal, threat to staff... and all critical care pts) @ -yes - Lab Data Lab Results 05/14/23 Range/Units 05:59 Group A Strep (PCR) NOT DETECTED (Not Detectd) Disposition Clinical Impression: Acute viral pharyngitis, Otitis media Disposition: HOME SELF-CARE Condition: Good Instructions (If sedation given, give patient instructions): Earache (ED), Pharyngitis (ED) Prescriptions: Azithromycin [Zithromax Z Pack] 1 tab PO DIRECTED #6 tab Is patient prescribed a controlled substance at d/c from ED?: No Referrals: None,Stated [Primary Care Provider] - 1-2 days Time of Disposition: 06:34
== END 2023-05-14 07:04 | disposition home or self-care (01) ==
LOC: EC 04:03
DX: H66.92 Otitis media, unspecified, left ear (principal); J02.8 Acute pharyngitis due to other specified organisms; B97.89 Other viral agents as the cause of diseases classified elsewhere; J45.909 Unspecified asthma, uncomplicated; F41.9 Anxiety disorder, unspecified; F32.A Depression, unspecified; Z87.891 Personal history of nicotine dependence; Z88.6 Allergy status to analgesic agent; Z88.5 Allergy status to narcotic agent; Z88.0 Allergy status to penicillin; Z88.8 Allergy status to other drugs, medicaments and biological substances; Z79.899 Other long term (current) drug therapy; Z88.1 Allergy status to other antibiotic agents
CPT/HCPCS: 81025; 87651; 99282

== ENCOUNTER 2024-01-30 11:08 | Emergency (ER) | payer BC ==
--- NOTE | 2024-01-30 11:30 | ED ---
General Adult HPI - General Source: patient, RN notes reviewed, old records reviewed Mode of arrival: ambulatory Limitations: no limitations <Hossein Yee - Last Filed: 01/30/24 11:26> - General Source: patient, RN notes reviewed, old records reviewed Mode of arrival: ambulatory Limitations: no limitations <Frida Delgado - Last Filed: 01/30/24 15:42> - General Stated complaint: SOB, pain in throat Time Seen by Provider: 01/30/24 11:15 - History of Present Illness Initial comments: 23-year-old female presents emergency department from urgent care for evaluation of difficulty breathing. Patient had a prior traumatic injury in which she has narrowing of her upper airway. Patient states she has been having some more issues in which she feels like they are just inflammation. Patient states that she was sent over here for evaluation of this. Patient states she had no testing done in urgent care (Hossein Yee) Is a 23-year-old female presents to the emergency department from urgent care for evaluation of difficulty breathing and foreign body sensation in the back of her throat. States this started about 2 weeks ago and has been worsening since. Patient denies any fevers, congestion, cough, runny nose. She admits to having multiple reconstructive surgeries of her vocal cords and trachea due to trauma in the past. She has taken Tylenol at home with minimal relief. (Frida Delgado) - Related Data Home Medications Medication Instructions Recorded Confirmed Acetaminophen Tab [Tylenol Tab] 1,000 mg PO Q6HR PRN 10/06/21 01/28/23 Previous Rx's Medication Instructions Recorded Azithromycin [Zithromax Z Pack] 1 tab PO DIRECTED #6 tab 05/14/23 predniSONE [Deltasone] 20 mg PO BID #10 tab 01/30/24 Allergies Allergy/AdvReac Type Severity Reaction Status Date / Time cephalexin [From Keflex] Allergy Itching Verified 01/30/24 11:43 fentanyl Allergy Unknown Verified 01/30/24 11:43 hydrocodone Allergy Unknown Verified 01/30/24 11:43 hydromorphone [From Dilaudid] Allergy Rash/Hives Verified 01/30/24 11:43 morphine Allergy Unknown Verified 01/30/24 11:43 NSAIDS (Non-Steroidal Allergy Anaphylaxis Verified 01/30/24 11:43 Anti-Inflamma Penicillins Allergy Rash/Hives Verified 01/30/24 11:43 promethazine Allergy Rash/Hives Verified 01/30/24 11:43 Review of Systems ROS Other: All systems not noted in ROS Statement are negative. <Hossein Yee - Last Filed: 01/30/24 11:26> ROS Other: All systems not noted in ROS Statement are negative. <Frida Delgado - Last Filed: 01/30/24 15:42> ROS Statement: Those systems with pertinent positive or pertinent negative responses have been documented in the HPI. Past Medical History Past Medical History: Asthma, Pneumonia Additional Past Medical History / Comment(s): trach kicked in throat by horse in july 2016, bilat pneumo History of Any Multi-Drug Resistant Organisms: None Reported Past Surgical History: No Surgical Hx Reported Additional Past Surgical History / Comment(s): Emergent tracheostomy 07/2016, 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 vocal cord surgeries, trach, chest tube Past Anesthesia/Blood Transfusion Reactions: No Reported Reaction Past Psychological History: Anxiety, Depression Smoking Status: Former smoker Past Alcohol Use History: Occasional Past Drug Use History: None Reported - Past Family History Brother(s) Family Medical History: Cancer <Hossein Yee - Last Filed: 01/30/24 11:26> General Exam <Hossein Yee - Last Filed: 01/30/24 11:26> Limitations: no limitations (soft-spoken due to numerous vocal cord repairs) General appearance: alert, in no apparent distress Head exam: Present: atraumatic, normocephalic, normal inspection Eye exam: Present: normal appearance, PERRL, EOMI. Absent: scleral icterus, conjunctival injection, periorbital swelling ENT exam: Present: normal exam, mucous membranes moist Expanded Mouth exam: Present: normal external inspection, tongue normal. Absent: drooling, trismus, muffled voice Throat exam: normal inspection. negative: tonsillar erythema, tonsillomegaly, tonsillar exudate Neck exam: Present: normal inspection. Absent: tenderness, meningismus, lymphadenopathy Expanded Neck exam: Absent: anterior neck swelling, thyroid mass, tracheal deviation Respiratory exam: Present: normal lung sounds bilaterally. Absent: rhonchi, stridor Cardiovascular Exam: Present: regular rate, normal rhythm, normal heart sounds. Absent: systolic murmur, diastolic murmur, rubs, gallop, clicks GI/Abdominal exam: Present: soft, normal bowel sounds. Absent: distended, tenderness, guarding, rebound, rigid Back exam: Present: normal inspection Neurological exam: Present: alert, oriented X3, CN II-XII intact Skin exam: Present: warm, dry, intact, normal color. Absent: rash <Frida Delgado - Last Filed: 01/30/24 15:42> - General Exam Comments Initial Comments: Visual Physical Exam Vital signs reviewed General: Well-appearing, nontoxic, no acute distress. Head: Normocephalic, atraumatic Eyes: PERRLA, EOMI ENT: Airway patent Chest: Nonlabored breathing Skin: No visual rash, normal skin tone Neuro: Alert and oriented 3 Musculoskeletal: No gross abnormalities (Hossein Yee) Course <Frida Delgado - Last Filed: 01/30/24 15:42> Vital Signs 01/30/24 01/30/24 01/30/24 11:40 13:40 13:49 Temperature 98.8 F Pulse Rate 68 89 90 Respiratory 18 18 Rate Blood Pressure 129/89 O2 Sat by Pulse 100 Oximetry - Reevaluation(s) Reevaluation #1: Patient states that her breathing has not improved since administration of breathing treatment and shot of steroid. 01/30/24 14:12 (Frida Delgado) Medical Decision Making <Hossein Yee - Last Filed: 01/30/24 11:26> <Frida Delgado - Last Filed: 01/30/24 15:42> - Medical Decision Making I completed the quick note portion of this chart signed Hossein Yee PA-C (Hossein Yee) Was pt. sent in by a medical professional or institution (RAEANN Ordaz, SODA TESTER, urgent care, hospital, or skilled nursing...) When possible be specific @ -Was advised by urgent care to proceed to ED for further evaluation and treatment Did you speak to anyone other than the patient for history (EMS, parent, family, police, friend...)? What history was obtained from this source @ -No Did you review nursing and triage notes (agree or disagree)? Why? @ -I reviewed and agree with nursing and triage notes Were old charts reviewed (outside hosp., previous admission, EMS record, old EKG, old radiological studies, urgent care reports/EKG's, skilled nursing records)? Report findings @ -Old charts reviewed Differential Diagnosis (chest pain, altered mental status, abdominal pain women, abdominal pain men, vaginal bleeding, weakness, fever, dyspnea, syncope, headache, dizziness, GI bleed, back pain, seizure, CVA, palpatations, mental health, musculoskeletal)? @ -[Differential: viral URI, sinusitis, peritonsillar Abscess, retropharyngeal Abscess, epiglottitis, strep A EKG interpreted by me (3pts min.). @ -None X-rays interpreted by me (1pt min.). @ -Soft tissue neck reveals mild subglottic narrowing determined by radiology. CT interpreted by me (1pt min.). @ -None done U/S interpreted by me (1pt. min.). @ -None done What testing was considered but not performed or refused? (CT, X-rays, U/S, labs)? Why? @ -None What meds were considered but not given or refused? Why? @ -None Did you discuss the management of the patient with other professionals (professionals i.e. , PA, SODA TESTER, lab, RT, psych nurse, manager social responsibility, laborer wharf, teacher, airframe technical officer, case advocate)? Give summary @ -No Was smoking cessation discussed for >3mins.? @ -No Was critical care preformed (if so, how long)? @ -No Were there social determinants of health that impacted care today? How? (Homelessness, low income, unemployed, alcoholism, drug addiction, transportation, low edu. Level, literacy, decrease access to med. care, [facility], rehab)? @ -No Was there de-escalation of care discussed even if they declined (Discuss DNR or withdrawal of care, Hospice)? DNR status @ -No What co-morbidities impacted this encounter? (DM, HTN, Smoking, COPD, CAD, Cancer, CVA, ARF, Chemo, Hep., AIDS, mental health diagnosis, sleep apnea, morbid obesity)? @ -None Was patient admitted / discharged? Hospital course, mention meds given and route, prescriptions, significant lab abnormalities, going to OR and other pertinent info. @ -[Disharged. 23-year-old female presents to ED with chief complaint of difficulty breathing and foreign body sensation in throat. Chest x-ray revealed subglottic narrowing. was administered IM dose of Decadron and racemic epi. She states that her breathing has not improved since administration of breathing treatment and steroid. Ordered soft neck CT no acute changes compared to previous imaging.. Undiagnosed new problem with uncertain prognosis? @ -No Drug Therapy requiring intensive monitoring for toxicity (Heparin, Nitro, Insulin, Cardizem)? @ -No Were any procedures done? @ -No Diagnosis/symptom? @ -Default Acute, or Chronic, or Acute on Chronic? @ -Acute Uncomplicated (without systemic symptoms) or Complicated (systemic symptoms)? @ -Uncomplicated Side effects of treatment? @ -No Exacerbation, Progression, or Severe Exacerbation? @ -No Poses a threat to life or bodily function? How? (Chest pain, [place], [place], pneumonia, PE, COPD, DKA, ARF, appy, cholecystitis, CVA, Diverticulitis, Homicidal, Suicidal, threat to staff... and all critical care pts) @ -No (Frida Delgado) - Lab Data Lab Results 01/30/24 Range/Units 11:45 Group A Strep (PCR) NOT DETECTED (Not Detectd) Disposition <Hossein Yee - Last Filed: 01/30/24 11:26> Is patient prescribed a controlled substance at d/c from ED?: No Time of Disposition: 15:20 <Frida Delgado - Last Filed: 01/30/24 15:42> Clinical Impression: Difficulty breathing Narrative: Please return to the Emergency Department if symptoms worsen or any other concerns. Discussed with patient setting up follow-up appointment with ENT. (Frida Delgado) Disposition: HOME SELF-CARE Condition: Good Instructions (If sedation given, give patient instructions): Shortness of Breath (ED) Referrals: None,Stated [Primary Care Provider] - 1-2 days
--- NOTE | 2024-01-30 12:03 | XR ---
EXAMINATION TYPE: XR soft tissue neck DATE OF EXAM: 01/30/2024 11:54 AM CLINICAL INDICATION:Female, 23 years old with history of Difficulty breathing; COMPARISON: 08/15/2016 TECHNIQUE: The soft tissues of the neck were imaged in frontal and lateral views. FINDINGS: The prevertebral soft tissues are unremarkable. There is no evidence of mass effect or trac heal deviation. No acute osseous abnormality demonstrated. There may be mild narrowing of the subglo ttic airway. IMPRESSION: There may be mild subglottic narrowing correlate for croup
[2024-01-30 12:08] VITALS: RESP 18; TEMP 98.8
[2024-01-30] MEDS: DEXAMETHASONE SOD PHOSPHATE 4 MG/ML 1 ML VIAL IVP STA (13:24)
[2024-01-30] MEDS: methylPREDNISolone SOD SUCCI 125 MG/2 ML VIAL IM ONE (13:31)
[2024-01-30] MEDS: RACEPINEPHRINE 2.25% NEB 0.5 ML NEBU INHALATION STA (13:39)
[2024-01-30 14:15] VITALS: PULSE 90
--- NOTE | 2024-01-30 15:17 | CT ---
EXAMINATION TYPE: CT soft tissue neck wo con CT DLP: 211.1 mGycm, Automated exposure control for dose reduction was used. DATE OF EXAM: 01/30/2024 2:58 PM COMPARISON: CT neck 05/03/2017. CLINICAL INDICATION:Female, 23 years old with history of Difficulty breathing. TECHNIQUE: Standard enhanced CT of the neck. Axial sections with coronal and sagittal reformats were obtained. Contrast used: None. Oral contrast used: none. FINDINGS: Brain: Visualized portions are grossly unremarkable. Orbits: Unremarkable Sinuses: Grossly unremarkable. Spaces of the neck: Clear and symmetric. Musculoskeletal: No acute osseous pathology. Lymph nodes: Multiple prominent but not enlarged lymph nodes are seen along both anterior chains of the neck. Vascular structures: Visualized major arteries are patent without evidence of aneurysm. Thoracic Inlet/airway: The lung apices are clear. Thin suspected soft tissue web involving the mid tr achea. Soft tissues/Thyroid: Thyroid and remainder of the soft tissues are unremarkable. IMPRESSION 1. No evidence of acute process. 2. 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
[2024-01-30 16:22] VITALS: BP 116/70
== END 2024-01-30 16:00 | disposition home or self-care (01) ==
LOC: EC 11:08
DX: R06.02 Shortness of breath (principal); J45.909 Unspecified asthma, uncomplicated; Z86.59 Personal history of other mental and behavioral disorders; Z87.891 Personal history of nicotine dependence; Z88.6 Allergy status to analgesic agent; Z88.0 Allergy status to penicillin; Z88.5 Allergy status to narcotic agent; Z88.1 Allergy status to other antibiotic agents; Z88.8 Allergy status to other drugs, medicaments and biological substances
CPT/HCPCS: 94640; 87651; 70360; 70490; 99285; 96372; J2930